=== PATIENT | male | born 1940 | race Caucasian/White ===

== ENCOUNTER → 2024-06-27 12:27 | Outpatient (REF) | payer MEDICARE, SELFPAY | LOC: RAD 12:27 | PROVIDERS: ATTENDING PHYSICIAN Specialist | DX: N13.30 Unspecified hydronephrosis (principal) | CPT/HCPCS: 74176 ==

== ENCOUNTER → 2024-09-10 09:37 | Outpatient (REF) | payer MEDICARE, SELFPAY | LOC: MRI 3T 09:37 | PROVIDERS: ATTENDING PHYSICIAN Psychiatry & Neurology Neurology; FAMILY PHYSICIAN Internal Medicine | DX: G62.9 Polyneuropathy, unspecified (principal) | CPT/HCPCS: 70551 ==

== ENCOUNTER 2025-01-08 19:35 | Inpatient (IN) | payer MEDICARE, OTHER, SELFPAY ==
[2025-01-08] VITALS (75 sets, daily range): BP systolic 64–112; BP diastolic 25–81; BMI 23.7; BMI 21.9
[2025-01-08] MEDS: NSS 1000 IV ×3 (15:50→22:59)
--- NOTE | 2025-01-08 15:53 | ED.GENMED ---
History of Present Illness
General
Chief Complaint: Catheter/Tube Problem
Source: patient and ambulance crew
Exam Limitations: none
Time Seen by Provider: 01/08/25 15:41
Nursing documentation reviewed up to this point in time: agreed with
History of Present Illness
History of Present Illness:
84 yo male presents emergency department complaining of bleeding during insertion of Cohen catheter at 4 AM. Is described as nathan red blood with clots. The catheter was removed, and he continues to have clots. He states his blood pressure
usually runs somewhat low. He did take his midodrine this morning.
Past History
Past History
ED Past Medical History: Cancer (non hodgkins lymphoma), Other (BPH, irritable bowel syndrome) and Other (kidney stones)
Social History
Tobacco: Non-smoker
Alcohol: None
Drug: None
Living: detention
Review of Systems
Review of Systems
Allergies reviewed?: Yes
All Other Systems: Not applicable
Constitutional: Reports no symptoms
EENT: Reports no symptoms
Respiratory: Reports no symptoms
Cardiac: Reports no symptoms
ABD/GI: Reports no symptoms
: Reports bleeding
Musculoskeletal: Reports no symptoms
Skin: Reports no symptoms
Neurological: Reports no symptoms
Endocrine: Reports no symptoms
Hematologic/Lymphatic: Reports no symptoms
Psychiatric: Reports no symptoms
Phy Exam
Physical Exam
Physical Exam:
Physical Exam
General: no apparent distress, not acutely ill
Neck: supple. no meningeal signs. normal posterior pharynx
Heart: s1/s2 regular rate and rhythm, no murmur. equal radial
pulses.
HEENT: Pupils equal round reactive to light, EOMI
Lungs: no acute respiratory distress. clear bilaterally
Abdomen: normal bowel sounds. not tender. no CVAT
: blood at urethral meatus
Neuro: alert and oriented. no focal neurological deficits cranial nerves II through XII intact
Skin: no rash
Psychiatric: well kept. interactive and cooperative
Extremities: no edema. no calf tenderness. negative homans. good distal pulses, contractures bilateral feet
Course
Orders/Labs/Results
Orders:
Orders
01/08/25 15:50
Lidocaine 2% [Lidocaine Uro-Jet 2%] 1 syringe .ROUTE .STK-MED ONE
Sterile Water [Sterile Water For Injection] 10 ml .ROUTE .STK-MED ONE
Sterile Water [Sterile Water For Injection] 20 ml .ROUTE .STK-MED
01/08/25 15:51
Cohen Placement- Treatment ONCE
Reason for insertion: Acute Retention
IV Insert/Care/Rem.- Treatment PRN
01/08/25 15:52
0.9% Sodium Chloride 1000 ml [Nss] 1,000 ml IV BOLUS
01/08/25 16:05
Complete Blood Count/With Diff Urgent
Comprehensive Metabolic Panel Urgent
Lactic Acid Q4H
Comment: CANCEL 2nd LACTIC ACID IF 1st LACTIC ACID IS LESS THAN 2
01/08/25 16:35
CT Abd/pel Without Iv Or Oral Urgent
Comment:
Reason For Exam: hematuria
01/08/25 16:36
Catheter- Indwelling As Directed
Reason for insertion: Urology Determination
Catheter-Hand Irrigation As Directed
Solution:: Sterile 0.9% NaCl
Amount: 100cc
Frequency: q 4hrs and prn
Reason for hand irrigation: hematuria and clots
Irrigate via:: Catheter directly
01/08/25 16:45
0.9% Sodium Chloride 500 ml [Nss] 1,000 ml IV Wide Open mls/hr
01/08/25 17:35
Cefepime HCl [Maxipime] 1,000 mg IV NOW STA
Midodrine [ProAmatine] 5 mg PO NOW STA
01/08/25 17:52
Sterile Water [Sterile Water For Injection] 20 ml .ROUTE .STK-MED
01/08/25 18:15
NORepinephrine 4 MG/250 ML [Levophed] 4 mg in 250 ml IV NOW
Initial dose in mcg/min, then titrate:: 4
Titrate to keep:: MAP > 65 mmHg
Titrate by mcg/min:: 1-2 mcg/min
Frequency of titrations (minutes):: 5
Maximum dose in ICU in mcg/min:: 30
Maximum dose in IMU in mcg/min:: 8
Maximum dose in IVU in mcg/min:: 4
Begin to taper infusion when:: Remained at goal for 4hrs
Taper by mcg/min:: 1-2 mcg/min
Frequency of taper (minutes) if patient maintains goal:: 30
Taper to off?: Yes
If infusion off & no longer maintaining goal:: Contact Provider
01/08/25 18:16
NORepinephrine 4 MG/250 ML [Levophed] 4 mg in 250 ml .ROUTE .STK-MED
01/08/25 18:24
Urinalysis Reflex To Culture Urgent
Date Specimen was Collected: 01/08/25
Time Specimen was Collected: 18:23
Urine Microscopic Reflex Cult Urgent
Urine Culture Urgent
TOM Source: U
Specimen Description:
Date Specimen was Collected: 01/08/25
Time Specimen was Collected: 18:23
01/08/25 18:30
Blood Culture Q30M
TOM Source: Blood/Venous
Specimen Description:
Blood Culture Q30M
TOM Source: Blood/Venous
Specimen Description:
01/08/25 18:43
Admit/Transfer Patient As Directed
Co-Sign Provider:
Level of Care: Inpatient admission
Assign to:: IMU- Intermediate Care
Physician / Group: [place]
Diagnosis: Septic Shock
Reason for Hospitalization: IV abx, blood pressure support
Expected length of stay greater than two midnights?: Yes
ELOS- Estimated Length of Stay in days: 3
I certify the patient meets the requirements for IP care: Yes
01/08/25 18:44
PRN Pain Medication Management As Directed
May give lesser potent ordered pain med per pt: Yes
preference::
Protocol:: Medication orders for pain may be administered in a
manner that supports deferring to patient preference
when the pt is:
- Requesting an ordered lesser potent pain medication.
Least to most potent pain medications are defined
as: acetaminophen < NSAID < tramadol < opioids
(morphine, oxycodone, hydromorphone).
- Requesting a lesser dose of the same medication IF
ORDERED.
- Requesting a less intrusive route of administration
if both routes are prescribed by the provider (PO <
IV).
01/08/25 18:47
Code Status As Directed
Resuscitation Status: Full Code
01/08/25 18:48
Acetaminophen [Tylenol] 1,000 mg .ROUTE .STK-MED ONE
Acetaminophen [Tylenol] 1,000 mg PO NOW STA
01/08/25 20:00
Lactic Acid Q4H
Comment: CANCEL 2nd LACTIC ACID IF 1st LACTIC ACID IS LESS THAN 2
Abnormal Lab Results
01/08/25 01/08/25
16:05 18:24
WBC 28.0 H 10^3/uL
(4.8-10.8)
RBC 3.50 L 10^6/uL
(4.70-6.10)
Hgb 10.1 L g/dL
(13.0-18.0)
Hct 30.8 L %
(39.0-52.0)
MCHC 32.8 L g/dL
(33.0-37.0)
Abs Immat Gran (auto) 0.4 H 10^3/uL
(0-0.05)
Absolute Neuts (auto) 26.9 H 10^3/uL
(1.4-6.5)
Absolute Lymphs (auto) 0.3 L 10^3/uL
(1.2-3.4)
Immature Gran % 1.2 H %
(0-0.5)
Neutrophils % 96.0 H %
(42.2-75.2)
Lymphocytes % 1.0 L %
(20.5-51.1)
Monocytes % 1.5 L %
(1.7-9.3)
BUN 25 H mg/dl
(9-20)
Creatinine 1.8 H mg/dL
(0.7-1.3)
Glucose 113 H mg/dl
(70-99)
Alkaline Phosphatase 178 H U/L
(38-126)
Ur Occult Blood Reflex 4+ A
(Negative)
Leukocyte Esterase Rfl 3+ A
(Negative)
Urine RBC >100 A /HPF
(0-2)
Urine WBC (Reflex) 11-15 A /HPF
(0-5)
Urine Bacteria (Reflex) Many A
(Negative)
Urine Albumin (Reflex) 2+ A
(Neg - Trace)
01/08/25 16:05
01/08/25 16:05
Vital Signs
Initial and Last Documented VS:
Initial Vital Signs
Temp Pulse Resp BP Pulse Ox
98.5 F 107 17 85/57 94
01/08/25 15:22 01/08/25 15:22 01/08/25 15:22 01/08/25 15:22 01/08/25 15:22
Last Documented Vital Signs
Temp Pulse Resp BP Pulse Ox
101.7 F H 97 12 111/49 94
01/08/25 18:00 01/08/25 19:30 01/08/25 19:30 01/08/25 19:30 01/08/25 19:30
MDM/Problems Addressed
Differential Diagnosis Includes:
Sepsis, UTI
MDM/Problems Addressed:
84-year-old male with UTI, hematuria, hypotension. Improved with Levophed drip. Cefepime given. Dr. Benson placed Cohen catheter.
Chronic conditions affecting care: Cancer (Lymphoma)
*Radiology
Radiology exam reviewed: radiology read reviewed (CT abdomen pelvis shows likely underlying cystitis, rectal stool bolus, trace bilateral pleural)
*Pulse Oximetry
Patient hypoxic: no
*Critical Care Note
Total Time (30-74mins, 75-104mins- exclusive of procedures): 30
comment:
Critical care statement: A total of 30 minutes of critical care time was provided for this patient. This includes management of unstable vital signs, evaluation of the patient at bedside, reviewing the patient's pertinent medical records, discussion
with consultants, review of old EKGs and review of pertinent medical records. This time with separate from time utilized to perform the aforementioned documented procedures
Patient Management
Social determinants of health affecting care: Living situation
Discussion with other providers: Hospitalist and Elevated Guard (Urology, Dr. Benson)
Escalation/DeEscalation of care consider admission/obs:
Admit indicated
ED Attending Note
-
Portions of this chart may have been created with voice recognition software.� Occasional wrong word or��sound alike� substitutions may have occurred due to the inherent limitations of voice recognition software.
Discharge Plan
Departure
Patient Disposition: Admit
Date of Disposition: 01/08/25
Time of Disposition: 17:37
Admit to: IMU
Presentation/result/management discussed w/ accepting MD/DO: Hospitalist
Patient with high blood pressure during this ER visit?: No
Condition: Fair
Discharge Problem:
Acute urinary retention, Hematuria, Acute hypotension
Interventions
Interventions:
*Risk Screen - Suicide Last Done: 01/08/25 15:41
*General Assessment Last Done: 01/08/25 15:22
*Neglect/Abuse Screening Last Done: 01/08/25 15:22
*ED COVID-19 Vaccine History Last Done: 01/08/25 15:43
XU-Awaong-Vamusmiylx Assessment Last Done: 01/08/25 17:47
ED-Male Genitourinary Assessment Last Done: 01/08/25 17:47
[2025-01-08 16:27] LABS: Lactic Acid 1.7 mmol/L (0.7-2.0)
[2025-01-08 16:33] LABS: Hematocrit 30.8 % (39.0-52.0); Hemoglobin 10.1 g/dL (13.0-18.0); Mean Corp Hgb Conc. 32.8 g/dL (33.0-37.0); Mean Corpuscular Hgb 28.9 pg (27.0-31.0); Platelet Count 312 10^3/uL (130-400); Red Cell Dist. Width 14.1 % (11.5-14.5)
--- NOTE | 2025-01-08 16:37 | CON.MD ---
Consultation - Medical
-
see dictated note
pt seen by me remotely
had hx of thickened bladder/had negative cysto several years ago
last CT showed again bladder thickening/hydro and left ureteral stones- had rec OR cysto/bx and ureteroscopy- pt declined
trent was placed several months ago- ? reason
today was changed with resultant clot obstruction
in ER trent could not be placed by staff
pt has elevated WBC and mild hypotension
22french coude cath placed- irrigated with 1 liter of saline- clots removed- irrigant cleared
plan
continue trent and hand irrigation- may need to address change clerk to 3 way- could require cysto
cover empirically with antibx- likely UTI- although suspect hematuria due to cath trauma
no blood thinners
check CT
will follow
[2025-01-08 16:42] LABS: % Basophils 0.2 % (0-2); % Eosinophils 0.1 % (0-6); % Immature Granulocytes 1.2 % (0-0.5); % Monocytes 1.5 % (1.7-9.3); Absolute Basophils 0.1 10^3/uL (0-0.2); Absolute Immature Granulocytes 0.4 10^3/uL (0-0.05); Absolute Lymphocytes 0.3 10^3/uL (1.2-3.4); Absolute Monocytes 0.4 10^3/uL (0.1-0.6); Absolute Neutrophils 26.9 10^3/uL (1.4-6.5); Nucleated Red Blood Cells % 0 % (-)
[2025-01-08 16:43] LABS: Normal RBC Morphology No
[2025-01-08 16:44] LABS: Hypochromasia 2+; Target Cells Moderate
[2025-01-08 16:45] LABS: Stomatocytes Occasional
[2025-01-08 16:47] LABS: ALT (SGPT) 17 U/L (0-50); AST (SGOT) 25 U/L (17-59); Albumin 3.6 g/dl (3.5-5.0); Alkaline Phosphatase 178 U/L (38-126); Blood Urea Nitrogen 25 mg/dl (9-20); Calcium 9.6 mg/dl (8.4-10.2); Carbon Dioxide 26 mmol/L (22-30); Chloride 100 mmol/L (98-107); Estimated Creatinine Clearance 36 ml/min; Glucose 113 mg/dl (70-99); Potassium 4.5 mmol/L (3.5-5.1); Sodium 135 mmol/L (135-145); Total Protein 6.3 g/dl (6.3-8.2); eGFR 37.12
[2025-01-08] MEDS: ProAmatine 5 MG PO (17:53)
[2025-01-08] MEDS: MAXIPIME 1000 MG IV (17:53)
[2025-01-08 18:30] LABS: Urine Albumin 2+ (Neg - Trace); Urine Bilirubin Negative (Negative); Urine Character Cloudy (Clear); Urine Color Yellow; Urine Glucose Negative (Negative); Urine Ketone Negative (Negative); Urine Leukocyte 3+ (Negative); Urine Nitrite Negative (Negative); Urine Occult Blood 4+ (Negative); Urine Urobilinogen Negative (Neg - 1+)
[2025-01-08] MEDS: LEVOPHED 250 IV (18:32)
[2025-01-08 18:44] LABS: Urine Squamous Cell 0-2 /LPF (Few)
[2025-01-08 18:45] LABS: Urine Red Blood Cell >100 /HPF (0-2)
[2025-01-08 18:46] LABS: Urine Bacteria Many (Negative)
[2025-01-08] MEDS: TYLENOL 1000 MG PO (18:49)
--- NOTE | 2025-01-08 18:59 | HPS.HSE ---
Addendum entered and electronically signed by Michelle Stovall PA-C 01/08/25 19:57:
Reviewed Abd/Pelvis CT scan which revealed large rectal stool bolus.
-Give milk and molasses enema now
-Start MiraLAX Daily
-Given his limited mobility will add Dulcolax suppository every other day
Original Note:
Family Physician
-
Family Physician: José Luis Solis MD
Chief Complaint
-
Hematuria
History of Present Illness
Patient is an 84 y/o male past medical history of peripheral neuropathy, spinal stenosis, chronic hypotension, Hodgkin lymphoma, and anxiety/depression who presents from [facility] with hematuria. Patient had his routine Cohen catheter changed
today and afterwards developed hematuria. Patient had persistent bleeding and clot and was sent to the emergency department for evaluation. Attempt was made to place a 3-way catheter for CBI but was unsuccessful. Urology was able to place Coude
catheter and hand irrigate a large amount of clots. While in the ED patient remained hypotensive despite IVFs and was started on Levophed. He also developed fever 101.7F.
Medical History
Past Medical History
Past Medical History: Reports Other
Additional Past Medical History:
Peripheral Neuropathy
Spinal Stenosis
Chronic Hypotension
GERD
Irritable Bowel Syndrome
Lactose Intolerance
BPH
Chronic Urinary Retention with Chronic Cohen
Hodgkin Lymphoma
Anxiety/Depression
Past Surgical History: Reports None
Social History
Tobacco: Non-smoker
Living: [facility]
Family History
Family History: Not pertinent
Allergies / Home Medications
Allergies reflects when Allergies were last updated in [facility].
Home Medications with original date entered in [facility]
Allergy/Medication List:
Allergies
Allergy/AdvReac Type Severity Reaction Status Date / Time
No Known Allergies Allergy Unverified 01/08/25 15:21
Home Medications
Saccharomyces boulardii 250 mg capsule 250 mg PO BID 01/08/25
acetaminophen 325 mg tablet 650 mg PO Q4HPRN PRN mild pain/temp>100 01/08/25
albuterol sulfate 90 mcg/actuation aerosol inhaler 2 puff inhalation R Q4HPRN PRN sob 01/08/25
aluminum-mag hydroxide-simethicone 225 mg-200 mg-25 mg/5 mL oral susp 30 ml PO Q8HPRN PRN heartburn 01/08/25
bismuth subsalicylate 262 mg/15 mL oral suspension 524 mg PO Q6HPRN PRN diarrhea/upset stomach 01/08/25
bupropion HCl 150 mg 24 hr tablet, extended release (Wellbutrin XL) 150 mg PO Q48H 01/08/25
diazepam 5 mg tablet 5 mg PO HS 01/08/25
gabapentin 300 mg capsule 300 mg PO HS 01/08/25
lactase 9,000 unit tablet (Lactaid Fast Act) 9,000 unit PO AC 01/08/25
loperamide 2 mg capsule (Imodium A-D) 2 mg PO Q8HPRN PRN diarrhea 01/08/25
midodrine 5 mg tablet 5 mg PO BID 01/08/25
pantoprazole 20 mg tablet,delayed release 20 mg PO DAILY 01/08/25
tamsulosin 0.4 mg capsule (Flomax) 0.4 mg PO BID 01/08/25
tramadol 25 mg tablet 25 mg PO Q8HPRN PRN moderate pain 01/08/25
Review of Systems
-
A 12 point ROS was completed and negative except as noted: Yes
Constitutional: Reports Fever
Respiratory: Denies Cough or Trouble Breathing
Cardiac: Denies Chest Pain or Palpitations
Abdomen/GI: Denies Abdominal Pain
: Reports See HPI
Physical Exam
Vital Signs
Vital Signs
Temp Pulse Resp BP Pulse Ox
101.7 F H 100 18 77/49 94
01/08/25 18:00 01/08/25 18:30 01/08/25 18:30 01/08/25 18:30 01/08/25 18:30
Physical Exam
General: Comfortable and Conversant
HEENT: Anicteric and Moist mucous membranes
Respiratory: Clear and Non Labored Respirations
Cardiac: S1/S2 and Regular Rhythm
GI: Tender (LLQ without or guarding) and Distended (Slightly)
Rectal: Hem Negative
Genito-urinary: Cohen and Other (Slightly blood tinged urine)
Musculoskeletal: No Clubbing, No Cyanosis and No Edema
Skin: Warm and Dry
Neuro: Awake, Alert, Oriented and Nonfocal/grossly intact
Psych: Calm
Laboratory Results
-
01/08/25 16:05
01/08/25 16:05
Laboratory Results
Lactic Acid 1.7 mmol/L (0.7-2.0) 01/08/25 16:05
Total Bilirubin 1.0 mg/dl (0.2-1.3) 01/08/25 16:05
AST 25 U/L (17-59) 01/08/25 16:05
ALT 17 U/L (0-50) 01/08/25 16:05
Alkaline Phosphatase 178 U/L (38-126) H 01/08/25 16:05
Data Reviewed
-
Lab Data: Labs Reviewed by me
Impression/Plan
-
Septic Shock most likely secondary to Catheter-Associated Urinary Tract Infection
-Continue Levophed
-Continue Cefepime
-Await urine and blood culture
-Await CT scan result
Elevated Creatinine, suspect Acute Kidney Injury
-Continue IVFs
-Recheck creatinine in AM
Peripheral Neuropathy
Spinal Stenosis
Functional Paraplegia
-Continue gabapentin
-Patient reports essentially bedbound
Chronic Hypotension
-Patient reports systolic blood pressure usually around 100
-Hold Midodrine while Levophed
Anxiety/Depression
-Continue Wellbutrin and Diazepam
BPH
-Continue Flomax
GERD
-Continue Protonix
DVT proph: SC Heparin
Code Status: Full Code
--- NOTE | 2025-01-08 19:46 | W.PN.UPDATE ---
Update Note
Progress Note Update
This is an addendum to the H&P written by Michelle Hernandez on 01/08/2025.� Patient seen and examined independently with PA.
84-year-old male past medical history of spinal stenosis, peripheral neuropathy, chronic urinary retention with chronic Cohen, BPH, Hodgkin's lymphoma, hypotension, GERD, IBS, anxiety/depression, presenting with hematuria with clots and urinary
retention.
Patient with fever 101.7.� Blood pressures 60s.
White blood cell count of 28.� Creatinine 1.8.
Urinalysis indicative of UTI.
Cohen catheter was attempted to be replaced with three-way catheter but could not be placed.� Coud� catheter placed with hand irrigation with 1 L.� Clots were removed.
Patient was septic shock secondary to catheter associated UTI.� Urine culture, blood cultures.� Cefepime.� CT abdomen pelvis pending.� Urology following.
--- NOTE | 2025-01-08 22:00 | PTCARENOTE ---
Received verbal report from [facility]. Pt arrived to unit via stretcher. Pt aaox3. NSR on monitor. 96% on RA. Levo gtt infusing at 5 mcg/min. Admission assessment as documented (see worklist). Pt now resting in bed with call phillip in reach.
[2025-01-08] MEDS: FLOMAX PO (22:59)
[2025-01-08] MEDS: FLORASTOR PO (22:59)
[2025-01-08] MEDS: NEURONTIN PO (22:59)
[2025-01-08] MEDS: HEPARIN 5000 UNITS SC (22:59)
--- NOTE | 2025-01-08 23:00 | PTCARENOTE ---
Pt ox3, drowsy and arouses to verbal stimuli, but quickly falls back asleep. Pt states he is too tired to take his medication. Pt Unable to safely take pills at this time.
[2025-01-08 23:26] LABS: Glucose - Point of Care 123 mg/dl (70-99)
[2025-01-09] VITALS (48 sets, daily range): BP systolic 90–125; BP diastolic 48–76; BMI 21.9
[2025-01-09] MEDS: FLOMAX PO (00:16)
[2025-01-09] MEDS: FLORASTOR PO (00:17)
[2025-01-09] MEDS: NEURONTIN PO (00:17)
[2025-01-09] MEDS: STERILE WATER FOR INJECTION 10 ML IV ×3 (02:04→17:24)
[2025-01-09] MEDS: MAXIPIME 1000 MG IV ×3 (02:04→17:24)
[2025-01-09 03:50] LABS: Hematocrit 28.8 % (39.0-52.0); Hemoglobin 9.9 g/dL (13.0-18.0); Mean Corp Hgb Conc. 34.4 g/dL (33.0-37.0); Mean Corpuscular Hgb 29.5 pg (27.0-31.0); Mean Corpuscular Volume 85.7 fL (80.0-94.0); Platelet Count 228 10^3/uL (130-400); Red Blood Cell Count 3.36 10^6/uL (4.70-6.10); White Blood Cell Count 34.2 10^3/uL (4.8-10.8)
[2025-01-09 03:56] LABS: Blood Urea Nitrogen 30 mg/dl (9-20); Calcium 8.7 mg/dl (8.4-10.2); Carbon Dioxide 19 mmol/L (22-30); Chloride 107 mmol/L (98-107); Estimated Creatinine Clearance 36 ml/min; Glucose 108 mg/dl (70-99); Potassium 4.7 mmol/L (3.5-5.1); Sodium 138 mmol/L (135-145); eGFR 39.75
[2025-01-09 04:28] LABS: TSH Reflex To Free T4 0.58 uIU/ml (0.47-4.68)
--- NOTE | 2025-01-09 07:25 | W.PN.URO.CBU ---
Today's Communication / Plan
-
continue trent and medical support
Assessment / Plan
-
neurogenic bladder
CRI
traumatic cath exchange with hematuria
Suspected UTI/urosepsis
off pressors/continues hydration
urine clearing- continue trent and prn flushes
awaiting ucx
Diagnosis
-
Date of Service: January 09, 2025
-
Patient Diagnosis:
neurogenic bladder
CRI
Traumatic cath exchange with hematuria
suspected UTI
Subjective
-
pt without complaint
urine clearing
now off pressors
cr stable at 1.7
CT scan- no hydro or stones- chronic bladder thickening
Objective
-
Vital Signs
Temp Pulse Resp BP Pulse Ox
97 F 82 14 98/54 97
01/09/25 03:54 01/09/25 06:30 01/09/25 06:30 01/09/25 06:30 01/09/25 06:30
Intake and Output
01/08/25 01/09/25 01/10/25
06:59 06:59 06:59
Intake Total 1280 / 1280
Output Total 450 / 450
Balance 830 / 830
Intake:
Oral fluids 480 / 480
IV fluids (Total) 800 / 800
Output:
Urine, Voided 350 / 350
True urine output from hand 100 / 100
irrigation
Other:
Number of unmeasured liquid
stools
Rectum 1
Laboratory Results
01/09/25 03:18
01/09/25 03:18
Physical Exam
-
General -no acute distress
Abdomen - soft, non-tender
Genitalia - trent in place
[2025-01-09] MEDS: LACTAID 1 CAPSULE PO ×3 (07:59→17:23)
[2025-01-09] MEDS: MIRALAX 17 GRAMS PO (08:09)
[2025-01-09] MEDS: HEPARIN 5000 UNITS SC ×2 (08:09→17:24)
[2025-01-09] MEDS: PROTONIX 20 MG PO (08:10)
[2025-01-09] MEDS: FLORASTOR 250 MG PO ×2 (08:10→19:51)
[2025-01-09] MEDS: FLOMAX 0.4 MG PO ×2 (08:10→19:52)
[2025-01-09] MEDS: WELLBUTRIN XL (24 hour extended release) 150 MG PO (08:10)
[2025-01-09] MEDS: NSS 1000 IV ×2 (08:10→18:01)
--- NOTE | 2025-01-09 08:59 | CM ---
Patient from [facility] with Dx septic shock, Suspected UTI/urosepsis. Room air. Clear liquids/IVF. Receiving Levophed gtt, IV Abx. Cohen- seen by urology for traumatic cath exchange with hematuria.
Spoke with [facility], [facility];
the patient resides there in LTC on an [place] bed hold.
He came to them from subsidized housing and has no family, however has contact with a friend.
He was A/O x3, w/c bound and not receiving PT currently.
The patient prefers to be in bed watching TV most of the day.
The ph for report [phone], fax [phone].
Plan return to [facility] when medically ready.
--- NOTE | 2025-01-09 11:35 | PTCARENOTE ---
Assumed care of patient this morning. He is very curious about all buttons tile conduit layer phillip and remote to move the bed. Pt is forgetful, therefore asking multiple times to explain which each one means. He was upset that his diet was clear liquids this
morning, was at the bedside and upgraded pt's diet. Pt's Cohen is draining yellow urine. He was incontinent of moderate amount of stool. BP soft but stable since off of Levo. Assessment, care and VS as charted.
--- NOTE | 2025-01-09 13:00 | PTCARENOTE ---
Patient Cohen output of only 200mls by 1300. Hand irrigation of Cohen performed, no clots noted. Pt tolerated.
--- NOTE | 2025-01-09 15:43 | W.PN.HOSP.TC ---
Today's Communication/Plan
-
Assessment / Plan
Assessment / Plan
General: No Apparent Distress, Comfortable and Conversant
HEENT: NormoCephalic, Moist mucous membranes, Atraumatic
Respiratory: Clear and Non Labored Respirations
Cardiac: S1/S2 and Regular Rhythm; No Rub or Gallop
GI: Soft, Non Tender, Non Distended and Normal Bowel Sounds
Musculoskeletal: No Edema, spastic deformity bilateral lower extremities
: Cohen in place draining clear yellow urine
Neuro: Awake, Alert, AO x 3 and Nonfocal/grossly intact
Psych: Calm and Intact Judgment/Insight
Mr. Alvarado is an 84-year-old male with a medical history of spinal stenosis (bedbound, spastic lower extremity deformity bilaterally), peripheral neuropathy, chronic hypotension, Hodgkin's lymphoma, and anxiety/depression who presented from his
[facility] with hematuria. His Cohen catheter was exchanged and subsequently he developed hematuria with clots. He was sent to the emergency department for evaluation. Three-way Cohen catheter for CBI was unable to be placed. However, urology
was able to place a coud� catheter and irrigated a large amount of clots, after which his Cohen was draining clear yellow urine. He was also noted to have a fever in the ED and CT of the abdomen pelvis showed a large rectal stool burden with likely
developing stercoral colitis. He developed hypotension requiring initiation of vasopressors. He was admitted for further evaluation and management of hematuria, septic shock secondary to UTI, and stercoral colitis.
Hematuria:
-Suspect secondary to traumatic Cohen exchange
-Cohen now draining clear yellow urine
-Hemoglobin stable, will monitor
-Monitor urine output and flush Cohen as needed
Septic shock secondary to UTI:
-Continue cefepime
-Has been afebrile since initial fever of 101.7 �F in the ED
-Follow-up urine culture and narrow antibiotics as able
-Shock resolved, vasopressors have been discontinued, will restart home midodrine for chronic hypotension
Stercoral colitis:
-Large rectal stool burden noted on CT imaging
-Successful enema overnight with large stool output
-Continue scheduled bowel regimen as patient
-Suspect patient has slow transit due to spinal stenosis affecting his lower extremities, bowel, and bladder
Hodgkin's lymphoma:
-Stable, expectedly elevated WBC
-Will need outpatient follow-up
Anxiety and depression:
-Continue home scheduled bupropion with as needed Valium
Peripheral neuropathy:
-Chronic, suspect due to spinal stenosis
-Continue home gabapentin
CODE STATUS: Full code
Anticipated Discharge: 24 - 48 hours
Subjective/Interval History
-
Date of Service: January 09, 2025
Patient was seen and examined at bedside this morning. No more blood per Cohen. Feeling hungry and eager for regular diet. He received an enema overnight with a large amount of stool output.
Objective Data
-
Labs:
Laboratory Results
01/09/25
03:18
WBC 34.2 H
Hgb 9.9 L
Hct 28.8 L
Plt Count 228 D
Sodium 138
Potassium 4.7
Chloride 107
Carbon Dioxide 19 L
BUN 30 H
Creatinine 1.7 H
Glucose 108 H
Calcium 8.7
Vital Signs:
Vital Signs
Temp Pulse Resp BP Pulse Ox
97.7 F 91 13 104/55 98
01/09/25 11:05 01/09/25 11:30 01/09/25 11:30 01/09/25 11:30 01/09/25 11:30
I&O
01/08/25 01/09/25 01/10/25
06:59 06:59 06:59
Intake Total 1280 / 1280
Output Total 450 / 450
Balance 830 / 830
Review of Systems
-
History Source: Patient
All other systems: Reviewed and negative
Physical Exam
-
General: No Apparent Distress
[2025-01-09] MEDS: DULCOLAX 10 MG RECTAL (19:51)
[2025-01-09] MEDS: ULTRAM 25 MG PO (19:51)
[2025-01-09] MEDS: ProAmatine 5 MG PO (19:52)
[2025-01-09] MEDS: NEURONTIN 300 MG PO (21:19)
[2025-01-09] MEDS: VALIUM 5 MG PO (21:19)
[2025-01-10] VITALS (15 sets, daily range): BP systolic 91–144; BP diastolic 59–87; BMI 21.6
[2025-01-10] MEDS: STERILE WATER FOR INJECTION 10 ML IV ×3 (01:24→17:02)
[2025-01-10] MEDS: HEPARIN 5000 UNITS SC ×4 (01:25→23:40)
[2025-01-10] MEDS: MAXIPIME 1000 MG IV ×3 (01:25→17:02)
[2025-01-10] MEDS: TYLENOL 650 MG PO ×3 (01:36→20:10)
--- NOTE | 2025-01-10 03:15 | PTCARENOTE ---
Assumed care of pt from john RN. Pt aaox3. NSR, hr 80s. Pt is 95% on RA. Pt given a suppository and had multiple large BMs overnight. Hygiene completed multiple times overnight (see worklist). Pt resting in bed with call phillip in reach.
[2025-01-10] MEDS: NSS 1000 IV ×2 (04:07→16:56)
[2025-01-10] MEDS: ULTRAM 25 MG PO ×3 (04:08→22:43)
[2025-01-10 04:52] LABS: % Basophils 0.3 % (0-2); % Eosinophils 0.1 % (0-6); % Immature Granulocytes 1.1 % (0-0.5); % Lymphocytes 5.2 % (20.5-51.1); % Monocytes 3.4 % (1.7-9.3); % Neutrophils 89.9 % (42.2-75.2); Absolute Basophils 0.1 10^3/uL (0-0.2); Absolute Immature Granulocytes 0.2 10^3/uL (0-0.05); Absolute Lymphocytes 1.1 10^3/uL (1.2-3.4); Absolute Monocytes 0.7 10^3/uL (0.1-0.6); Absolute Neutrophils 19.1 10^3/uL (1.4-6.5); Hematocrit 25.7 % (39.0-52.0); Hemoglobin 8.5 g/dL (13.0-18.0); Mean Corp Hgb Conc. 33.1 g/dL (33.0-37.0); Mean Corpuscular Hgb 28.4 pg (27.0-31.0); Mean Platelet Volume 9.9 fL (7.4-10.4); Nucleated Red Blood Cells % 0 % (-); Platelet Count 190 10^3/uL (130-400); Red Blood Cell Count 2.99 10^6/uL (4.70-6.10); Red Cell Dist. Width 14.1 % (11.5-14.5); White Blood Cell Count 21.3 10^3/uL (4.8-10.8)
[2025-01-10 05:27] LABS: Blood Urea Nitrogen 30 mg/dl (9-20); Carbon Dioxide 19 mmol/L (22-30); Chloride 110 mmol/L (98-107); Estimated Creatinine Clearance 50 ml/min; Glucose 93 mg/dl (70-99); Potassium 4.1 mmol/L (3.5-5.1); Sodium 136 mmol/L (135-145); eGFR > 60.00
[2025-01-10] MEDS: MIRALAX 17 GRAMS PO (08:31)
[2025-01-10] MEDS: LACTAID 1 CAPSULE PO ×2 (08:31→15:15)
[2025-01-10] MEDS: PROTONIX 20 MG PO (08:31)
[2025-01-10] MEDS: FLOMAX 0.4 MG PO ×2 (08:31→20:11)
[2025-01-10] MEDS: FLORASTOR 250 MG PO ×2 (08:31→20:09)
[2025-01-10] MEDS: ProAmatine 5 MG PO ×2 (08:32→20:11)
--- NOTE | 2025-01-10 09:43 | PHA.VAN.IN ---
Assessment
- Assessment
Renal Function: Unknown baseline (SCR trending down 1.8 --> 1.7 --> 1.2)
Concomitant Antimicrobials: cefepime
Plan
- Plan
Initial / Loading Dose: 2000mg - administration pending
Maintenance Regimen: dosing by level
Monitoring: random 01/11 600
Pharmacokinetics Vancomycin I
- -
Patient Age: 84
Patient Sex: Male
Vancomycin Day #: 1
Indication: Bacteremia
Requesting Provider: Dr. Ornelas
Pertinent Antimicrobial Allergies:
NKDA
Height / Weight:
Height 6 ft 1 in
Actual Weight 74.14 kg
Pertinent Past Medical History: Spinal stenosis (bedbound), Hodgkin's lymphoma
- Vital Signs / Lab Results
Temp Pulse Resp BP Pulse Ox
98.6 F 93 9 128/71 95
01/10/25 07:36 01/10/25 08:32 01/10/25 07:00 01/10/25 08:32 01/10/25 07:00
Lab Results - Hematology
01/08/25 01/09/25 01/10/25
16:05 03:18 04:24
WBC 28.0 H 34.2 H 21.3 H
Lab Results - Chemistry
01/08/25 01/09/25 01/10/25
16:05 03:18 04:24
BUN 25 H 30 H 30 H
Creatinine 1.8 H 1.7 H 1.2
Estimated Creat Clear 36 36 50
Albumin 3.6
01/08/25 01/08/25
16:05 20:00
Lactic Acid 1.7 Cancelled
Lab Results - Urine
01/08/25
18:24
Urine Nitrite (Reflex) Negative
Leukocyte Esterase Rfl 3+ A
Urine WBC (Reflex) 11-15 A
Ur Squamous Epith Cells 0-2
Urine Bacteria (Reflex) Many A
Microbiology Results
01/08/25 18:24 Urine Culture - Preliminary
Urine
01/08/25 21:55 MRSA Screen - Final
Nose Staph aureus MRSA
01/08/25 18:30 Blood Culture - Preliminary
Blood/Venous Positive culture in progress
Gram Stain - Preliminary
01/08/25 18:30 Blood Culture - Preliminary
Blood/Venous No Growth in 24 hours- Final report to follow
--- NOTE | 2025-01-10 10:03 | PTCARENOTE ---
Assumed care of patient this morning. He does c/o of LE pain, medicated with Tylenol per MAR. Cohen maintained, still has slight bleeding from tip of penis. Patient has no other complaints but would like to know anticipated discharge. Assessment,
care and VS as charted.
[2025-01-10] MEDS: VANCOCIN 540 MG IV (10:35)
--- NOTE | 2025-01-10 11:45 | W.PN.URO.CBU ---
Today's Communication / Plan
-
outpt f/u
Assessment / Plan
-
neurogenic bladder
CRI
traumatic cath exchange with hematuria
Suspected UTI/urosepsis
urine clear- trent in place
awaiting cx results
pt already has fu with dr cotto in office in 2 weeks- will follow peripherally at this point- call with questions
Diagnosis
-
Date of Service: January 10, 2025
-
Patient Diagnosis:
neurogenic bladder
CRI
Traumatic cath exchange with hematuria
suspected UTI
Subjective
-
pt looks better
H stable
no fevers
wbc and cr returning to normal
ucx pending- 1 blood cx + for staph
Objective
-
Vital Signs
Temp Pulse Resp BP Pulse Ox
98.6 F 91 13 128/71 97
01/10/25 07:36 01/10/25 09:00 01/10/25 09:00 01/10/25 08:32 01/10/25 09:50
Intake and Output
01/09/25 01/10/25 01/11/25
06:59 06:59 06:59
Intake Total 1280 / 1280 3480 / 3480
Output Total 450 / 450 925 / 925 400 / 400
Balance 830 / 830 2555 / 2555 -400 / -400
Intake:
Oral fluids 480 / 480 1080 / 1080
IV fluids (Total) 800 / 800 2400 / 2400
Output:
Urine, Trent 350 / 350 400 / 400
Urine, Voided 350 / 350 575 / 575
True urine output from hand 100 / 100 0 / 0
irrigation
Other:
Number of unmeasured liquid
stools
Rectum 1 1
Laboratory Results
01/10/25 04:24
01/10/25 04:24
Physical Exam
-
General -no acute distress
Genitalia - trent in place- urine clear
--- NOTE | 2025-01-10 12:11 | CM ---
Reviewed the chart notes. Patient is a [facility] resident of [facility]. CM continues to be available to patient/family and is monitoring medical plan for needs at discharge.
Plan: Discharge back to [facility] when medically stable. No precert required.
[2025-01-10] MEDS: LACTAID PO ×2 (12:53)
--- NOTE | 2025-01-10 16:45 | CON.ID ---
Consultation
-
Date/Time Consultation Requested: 01/10/25 13:33
Date/Time Consultation Performed: 01/10/25 17:05
Requesting Provider: Dr Medina
Performing Provider: Dr Santillan
Reason for Consultation: staph bacteremia
Chief Complaint / Past History
Chief Complaint
hematuria
History of Present Illness
Mr Alvarado is an 84 year old male with history of Hodgkin lymphoma (never received treatment), peripheral neuropathy with ambulatory dysfunction who presented here 01/08 after developing hematuria after a routine trent replacement. He has peristent
bleeding and cltos and was sent to the ER where urology placed a coude catheter and hand irrigated a large amount of clots. Reports no wounds; I did check his heels and no wounds were present. No new back pain or changes in his vision. No hardwear
Since arrival here he was found to be febrile to 101.7, bp overall stable, wbc on arrival 28, hgb 10, plt 312, L shift noted, na 136, cr initially 1.8 today 1.2 unknown baseline, UA with gross hematuria and minimal pyuria, urine culture in progress,
blood cultures 1 of 2 sets with s aureus, nares with mrsa, a single repeat blood culture was done prior to vancomycin being started then ID was consulted and ordered the second set.
Past History
Additional Past Medical History:
Peripheral Neuropathy
Spinal Stenosis
Chronic Hypotension
GERD
Irritable Bowel Syndrome
Lactose Intolerance
BPH
Chronic Urinary Retention with Chronic Trent
Hodgkin Lymphoma
Anxiety/Depression
Past Surgical History: None
Allergy History:
No Known Allergies Allergy (Unverified 01/08/25 15:21)
Medications Reviewed: Yes
Social History
Tobacco: Non-Smoker
Alcohol: None
Living: Residential
Family History
Family History: Not Pertinent
Review of Systems
Review of Systems
General: Fever
All systems: All other systems were reviewed and were negative
Vital Signs
Temp Pulse Resp BP Pulse Ox
98.5 F 86 9 144/76 97
01/10/25 15:00 01/10/25 16:00 01/10/25 16:00 01/10/25 16:00 01/10/25 16:00
Physical Exam
Physical Exam
Constitutional: No Acute Distress
Cardiovascular: Regular Rate and S1/S2; Negative Murmur or Rub
Pulmonary: Clear and Symmetric; Negative Wheezes, Rales or Rhonchi
Gastrointestinal: Soft, Non Tender, Non Distended and Normal Bowel Sounds
Skin: Warm and Dry; Negative Rash or Jaundice
Wound: None (bilateral heels intact)
Lines: Other (no port)
Lab / Diagnostic Study Results
01/10/25 04:24
01/10/25 04:24
Abs Immat Gran (auto) 0.2 10^3/uL (0-0.05) H 01/10/25 04:24
Absolute Neuts (auto) 19.1 10^3/uL (1.4-6.5) H 01/10/25 04:24
Absolute Lymphs (auto) 1.1 10^3/uL (1.2-3.4) L 01/10/25 04:24
Absolute Monos (auto) 0.7 10^3/uL (0.1-0.6) H 01/10/25 04:24
Absolute Basos (auto) 0.1 10^3/uL (0-0.2) 01/10/25 04:24
Immature Gran % 1.1 % (0-0.5) H 01/10/25 04:24
Neutrophils % 89.9 % (42.2-75.2) H 01/10/25 04:24
Lymphocytes % 5.2 % (20.5-51.1) L 01/10/25 04:24
Monocytes % 3.4 % (1.7-9.3) 01/10/25 04:24
Eosinophils % 0.1 % (0-6) 01/10/25 04:24
Basophils % 0.3 % (0-2) 01/10/25 04:24
Lactic Acid Cancelled 01/08/25 20:00
Ur Squamous Epith Cells 0-2 /LPF (Few) 01/08/25 18:24
Microbiology Results
Micro:
01/10/25 15:12 Blood Culture - Pending
Blood/Venous
01/08/25 18:30 Blood Culture - Preliminary
Blood/Venous Staphylococcus aureus
Gram Stain - Preliminary
01/10/25 09:11 Blood Culture - Pending
Blood/Venous
01/08/25 18:24 Urine Culture - Preliminary
Urine
01/08/25 21:55 MRSA Screen - Final
Nose Staph aureus MRSA
01/08/25 18:30 Blood Culture - Preliminary
Blood/Venous No Growth in 24 hours- Final report to follow
Assessment / Plan
S aureus Bacteremia
chronic hypotension on midodrine
BLAYNE vs CKD
- 1 of 2 sets with s aureus
- repeat two sets of blood cultures today
- TTE done - report pending
- nares colonized with MRSA
- trend renal function
- agree with vancomycin
- will require at least two week of IV antibiotics
- PICC placement when two sets of blood cultures are negative at 48 hours
--- NOTE | 2025-01-10 16:49 | W.PN.HOSP.TC ---
Today's Communication/Plan
-
Assessment / Plan
Assessment / Plan
General: No Apparent Distress, Comfortable and Conversant
HEENT: NormoCephalic, Moist mucous membranes, Atraumatic
Respiratory: Clear and Non Labored Respirations
Cardiac: S1/S2 and Regular Rhythm; No Rub or Gallop
GI: Soft, Non Tender, Non Distended and Normal Bowel Sounds
Musculoskeletal: No Edema, spastic deformity bilateral lower extremities
: Cohen in place draining clear yellow urine
Neuro: Awake, Alert, AO x 3, bilateral lower extremity spasticity
Psych: Calm and Intact Judgment/Insight
Mr. Alvarado is an 84-year-old male with a medical history of spinal stenosis (bedbound, spastic lower extremity deformity bilaterally), peripheral neuropathy, chronic hypotension, Hodgkin's lymphoma, and anxiety/depression who [facility] with hematuria. His Cohen catheter was exchanged and subsequently he developed hematuria with clots. He was sent to the emergency department for evaluation. Three-way Cohen catheter for CBI was unable to be placed. However, urology
was able to place a coud� catheter and irrigated a large amount of clots, after which his Cohen was draining clear yellow urine. He was also noted to have a fever in the ED and CT of the abdomen pelvis showed a large rectal stool burden with likely
developing stercoral colitis. He developed hypotension requiring initiation of vasopressors. He was admitted for further evaluation and management of hematuria, septic shock secondary to UTI, and stercoral colitis.
Hematuria:
-Suspect secondary to traumatic Cohen exchange
-Cohen now draining clear yellow urine
-Hemoglobin stable, will monitor
-Monitor urine output and flush Cohen as needed
-Outpatient urology follow-up
Septic shock:
-Secondary to UTI, however now blood cultures are positive for Staph aureus
-Continue cefepime, added vancomycin
-Has been afebrile since initial fever of 101.7 �F in the ED, leukocytosis improving although still elevated as expected in the setting of known history of Hodgkin's lymphoma
-Follow-up final cultures and narrow antibiotics as able
-Shock resolved, vasopressors have been discontinued, will restart home midodrine for chronic hypotension
Staph aureus bacteremia:
-Blood cultures growing Staph aureus, vancomycin added
-Repeat blood cultures pending
-Will check echocardiogram
-Further recommendations per infectious disease team
Stercoral colitis:
-Large rectal stool burden noted on CT imaging
-Successful enema with large stool output
-Continue scheduled bowel regimen as patient
-Suspect patient has slow transit due to spinal stenosis affecting his lower extremities, bowel, and bladder
Hodgkin's lymphoma:
-Stable, expectedly elevated WBC
-Will need outpatient follow-up
Anxiety and depression:
-Continue home scheduled bupropion which pharmacy has confirmed is prescribed as 150 mg every 48 hours
-Patient reports that he is supposed to be taking Zoloft however pharmacy has confirmed this is not been prescribed recently even at his nursing facility
-Valium at night
Peripheral neuropathy:
-Chronic, suspect due to spinal stenosis
-Continue home gabapentin
CODE STATUS: Full code
Anticipated Discharge: 24 - 48 hours
Subjective/Interval History
-
Date of Service: January 10, 2025
Patient was seen and examined at bedside this morning. No complaints. His blood cultures did result positive for Staph aureus. Vancomycin has been added to his antibiotic regimen.
Objective Data
-
Labs:
Laboratory Results
01/10/25
04:24
WBC 21.3 H
Hgb 8.5 L
Hct 25.7 L
Plt Count 190
Sodium 136
Potassium 4.1
Chloride 110 H
Carbon Dioxide 19 L
BUN 30 H
Creatinine 1.2
Glucose 93
Calcium 8.0 L
Vital Signs:
Vital Signs
Temp Pulse Resp BP Pulse Ox
98.5 F 86 9 144/76 97
01/10/25 15:00 01/10/25 16:00 01/10/25 16:00 01/10/25 16:00 01/10/25 16:00
I&O
01/09/25 01/10/25 01/11/25
06:59 06:59 06:59
Intake Total 1280 / 1280 3480 / 3480
Output Total 450 / 450 925 / 925 400 / 400
Balance 830 / 830 2555 / 2555 -400 / -400
Review of Systems
-
History Source: Patient
All other systems: Reviewed and negative
Musculoskeletal: Reports Muscle Stiffness (Bilateral lower extremity and low back chronic pain)
Physical Exam
-
General: No Apparent Distress
--- NOTE | 2025-01-10 20:49 | PTCARENOTE ---
Patient oriented, but forgetful. C/o chronic severe back pain associated with LE pain and neuropathy. Tylenol given per MAR as tramadol is not due yet. Pt with moderate, dark, loose BM, hygiene care performed. Trent catheter with bloody drainage
around insertion site, trent care performed. Q2T schedule in place to prevent skin breakdown. Call phillip within reach.
[2025-01-10] MEDS: VALIUM 5 MG PO (21:21)
[2025-01-10] MEDS: NEURONTIN 300 MG PO (21:21)
[2025-01-11] VITALS (13 sets, daily range): BP systolic 89–150; BP diastolic 55–96; BMI 22.2
[2025-01-11] MEDS: NSS 1000 IV (02:03)
[2025-01-11] MEDS: MAXIPIME 1000 MG IV ×3 (02:49→17:55)
[2025-01-11] MEDS: STERILE WATER FOR INJECTION 10 ML IV ×3 (02:49→17:55)
[2025-01-11] MEDS: TYLENOL 650 MG PO ×2 (03:23→13:58)
[2025-01-11 03:29] LABS: % Basophils 0.4 % (0-2); % Eosinophils 0.7 % (0-6); % Lymphocytes 9.5 % (20.5-51.1); % Monocytes 5.2 % (1.7-9.3); % Neutrophils 83.2 % (42.2-75.2); Absolute Basophils 0.1 10^3/uL (0-0.2); Absolute Eosinophils 0.1 10^3/uL (0-0.7); Absolute Immature Granulocytes 0.1 10^3/uL (0-0.05); Absolute Lymphocytes 1.3 10^3/uL (1.2-3.4); Absolute Monocytes 0.7 10^3/uL (0.1-0.6); Absolute Neutrophils 11.5 10^3/uL (1.4-6.5); Hematocrit 27.8 % (39.0-52.0); Hemoglobin 9.2 g/dL (13.0-18.0); Mean Corp Hgb Conc. 33.1 g/dL (33.0-37.0); Mean Corpuscular Hgb 28.6 pg (27.0-31.0); Mean Corpuscular Volume 86.3 fL (80.0-94.0); Mean Platelet Volume 9.3 fL (7.4-10.4); Nucleated Red Blood Cells % 0 % (-); Platelet Count 176 10^3/uL (130-400); Red Blood Cell Count 3.22 10^6/uL (4.70-6.10); Red Cell Dist. Width 14.1 % (11.5-14.5); White Blood Cell Count 13.8 10^3/uL (4.8-10.8)
[2025-01-11 04:35] LABS: Blood Urea Nitrogen 20 mg/dl (9-20); Calcium 8.4 mg/dl (8.4-10.2); Carbon Dioxide 18 mmol/L (22-30); Chloride 112 mmol/L (98-107); Estimated Creatinine Clearance 77 ml/min; Glucose 94 mg/dl (70-99); Potassium 4.4 mmol/L (3.5-5.1); Sodium 139 mmol/L (135-145); eGFR > 60.00
[2025-01-11] MEDS: MIRALAX PO (08:45)
[2025-01-11] MEDS: ProAmatine 5 MG PO ×2 (08:46→19:20)
[2025-01-11] MEDS: PROTONIX 20 MG PO (08:46)
[2025-01-11] MEDS: LACTAID 1 CAPSULE PO ×2 (08:46→16:27)
[2025-01-11] MEDS: WELLBUTRIN XL (24 hour extended release) 150 MG PO (08:46)
[2025-01-11] MEDS: FLORASTOR 250 MG PO ×2 (08:47→19:20)
[2025-01-11] MEDS: HEPARIN 5000 UNITS SC ×2 (08:47→16:27)
[2025-01-11] MEDS: FLOMAX 0.4 MG PO ×2 (08:47→19:19)
[2025-01-11] MEDS: ULTRAM 25 MG PO ×2 (09:16→19:25)
--- NOTE | 2025-01-11 09:47 | PHA.VAN.FU ---
Vancomycin Assessment / Plan
- Assessment
Renal Function: SCR Decreasing
WBC's are: Trending Down
In the past 24 hrs, patient has been: Afebrile
Concomitant Antimicrobials: cefepime
- Assessment - Therapeutic Drug Monitoring
Random Level: level was not drawn on 01/11
- Dosing Plan
Adjust Regimen to: vancomycin 750 mg q12h
New Regimen Predicts: AUC (425), Peak (25.1), Trough (11.8)
- Monitoring Plan
Random Level: 01/12 @0530
- Follow Up
Pharmacy will continue to follow.
Vancomycin Follow UP
- -
Patient Age: 84
Patient Sex: Male
Vancomycin Day #: 2
Indication: Bacteremia
Requesting Provider: Dr. Ornelas
Pertinent Antimicrobial Allergies:
NKDA
Height / Weight:
Height 6 ft 1 in
Actual Weight 76.3 kg
Pertinent Past Medical History: Spinal stenosis (bedbound), Hodgkin's lymphoma
- Vital Signs / Lab Results
Temp Pulse Resp BP Pulse Ox
97.7 F 82 12 129/96 95
01/11/25 07:05 01/11/25 09:00 01/11/25 09:00 01/11/25 08:00 01/11/25 09:09
Lab Results - Hematology
01/08/25 01/09/25 01/10/25
16:05 03:18 04:24
WBC 28.0 H 34.2 H 21.3 H
01/11/25
03:20
WBC 13.8 H
Lab Results - Chemistry
01/08/25 01/09/25 01/10/25
16:05 03:18 04:24
BUN 25 H 30 H 30 H
Creatinine 1.8 H 1.7 H 1.2
Estimated Creat Clear 36 36 50
Albumin 3.6
01/11/25
03:20
BUN 20
Creatinine 0.8
Estimated Creat Clear 77
Albumin
01/08/25 01/08/25
16:05 20:00
Lactic Acid 1.7 Cancelled
Lab Results - Urine
01/08/25
18:24
Urine Nitrite (Reflex) Negative
Leukocyte Esterase Rfl 3+ A
Ur Squamous Epith Cells 0-2
Microbiology Results
01/08/25 18:24 Urine Culture - Preliminary
Urine Escherichia coli
Gram negative bacilli
01/10/25 09:11 Blood Culture - Preliminary
Blood/Venous No Growth in 24 hours- Final report to follow
01/08/25 18:30 Blood Culture - Preliminary
Blood/Venous Staphylococcus aureus
Gram Stain - Preliminary
01/08/25 18:30 Blood Culture - Preliminary
Blood/Venous No Growth in 48 hours- Final report to follow
01/08/25 21:55 MRSA Screen - Final
Nose Staph aureus MRSA
--- NOTE | 2025-01-11 09:58 | W.PN.ID1 ---
Addendum entered and electronically signed by Pati Santillan MD 01/11/25 17:24:
also possible UTI
continue cefepime pending final ID and sensi
Original Note:
Date of Service
Date of Service: January 11, 2025
Today's Communication
- agree with vancomycin - dose adjustments ongoing with improving renal function
- will require at least two week of IV antibiotics
- PICC placement when two sets of blood cultures are negative at 48 hours
Assessment / Plan
S aureus Bacteremia
chronic hypotension on midodrine
BLAYNE resolved
- 1 of 2 sets with s aureus
- repeat two sets of blood cultures today
- TTE done - no vegetation seen
- nares colonized with MRSA
- agree with vancomycin - dose adjustments ongoing with improving renal function
- will require at least two week of IV antibiotics
- PICC placement when two sets of blood cultures are negative at 48 hours
Chief Complaint
-: Bacteremia (S aurues)
Subjective / Review of Systems
afebrile
bp stable
back pain unchanged
no new complaints
Vital Signs / Physical Exam
Vital Signs
Vital Signs
Temp Pulse Resp BP Pulse Ox
97.7 F 82 12 129/96 95
01/11/25 07:05 01/11/25 09:00 01/11/25 09:00 01/11/25 08:00 01/11/25 09:09
Physical Exam
Constitutional: No Acute Distress and Chronically Ill
Cardiovascular: Regular Rate and S1/S2; Negative Murmur or Rub
Pulmonary: Clear and Symmetric; Negative Wheezes or Rales
Gastrointestinal: Soft, Non Tender, Non Distended and Normal Bowel Sounds
Skin: Warm and Dry; Negative Rash or Jaundice
Objective Data
Lab Data
Lab Results
01/11/25 03:20
01/11/25 03:20
Estimated Creat Clear 77 ml/min 01/11/25 03:20
Lactic Acid Cancelled 01/08/25 20:00
Total Bilirubin 1.0 mg/dl (0.2-1.3) 01/08/25 16:05
AST 25 U/L (17-59) 01/08/25 16:05
ALT 17 U/L (0-50) 01/08/25 16:05
Alkaline Phosphatase 178 U/L (38-126) H 01/08/25 16:05
Most recent labs reviewed.
Micro Results:
01/08/25 18:24 Urine Culture - Preliminary
Urine Escherichia coli
Gram negative bacilli
01/10/25 09:11 Blood Culture - Preliminary
Blood/Venous No Growth in 24 hours- Final report to follow
01/08/25 18:30 Blood Culture - Preliminary
Blood/Venous Staphylococcus aureus
Gram Stain - Preliminary
01/08/25 18:30 Blood Culture - Preliminary
Blood/Venous No Growth in 48 hours- Final report to follow
01/10/25 15:12 Blood Culture - Pending
Blood/Venous
01/08/25 21:55 MRSA Screen - Final
Nose Staph aureus MRSA
[2025-01-11] MEDS: VANCOCIN 200 IV (10:51)
[2025-01-11] MEDS: LACTAID PO (13:58)
--- NOTE | 2025-01-11 15:29 | PTCARENOTE ---
Assumed care of patient at beginning of this shift from previous RN. Ox3; Q2h turn maintained. Trent catheter draining yellow urine; no blood noted in tubing. Scant amount of blood noted at trent insertion site; trent care done and stat lock
changed/moved closer to prevent pulling. IVAB administered as ordered. See worklist for full assessment and vital signs; see MAR for med administration.
--- NOTE | 2025-01-11 15:55 | W.PN.HOSP.TC ---
Today's Communication/Plan
-
Assessment / Plan
Assessment / Plan
General: No Apparent Distress, Comfortable and Conversant
HEENT: NormoCephalic, Moist mucous membranes, Atraumatic
Respiratory: Clear and Non Labored Respirations
Cardiac: S1/S2 and Regular Rhythm; No Rub or Gallop
GI: Soft, Non Tender, Non Distended and Normal Bowel Sounds
Musculoskeletal: No Edema, spastic deformity bilateral lower extremities
: Cohen in place draining clear yellow urine
Neuro: Awake, Alert, AO x 3, bilateral lower extremity spasticity
Psych: Calm and Intact Judgment/Insight
Mr. Alvarado is an 84-year-old male with a medical history of spinal stenosis (bedbound, spastic lower extremity deformity bilaterally), peripheral neuropathy, chronic hypotension, Hodgkin's lymphoma, and anxiety/depression who presented from his
[facility] with hematuria. His Cohen catheter was exchanged and subsequently he developed hematuria with clots. He was sent to the emergency department for evaluation. Three-way Cohen catheter for CBI was unable to be placed. However, urology
was able to place a coud� catheter and irrigated a large amount of clots, after which his Cohen was draining clear yellow urine. He was also noted to have a fever in the ED and CT of the abdomen pelvis showed a large rectal stool burden with likely
developing stercoral colitis. He developed hypotension requiring initiation of vasopressors. He was admitted for further evaluation and management of hematuria, septic shock secondary to UTI, and stercoral colitis.
Hematuria:
-Suspect secondary to traumatic Cohen exchange
-Cohen now draining clear yellow urine
-Hemoglobin stable, will monitor
-Monitor urine output and flush Cohen as needed
-Outpatient urology follow-up
Septic shock:
-Secondary to UTI, however now blood cultures are positive for Staph aureus
-Continue cefepime, added vancomycin
-Has been afebrile since initial fever of 101.7 �F in the ED, leukocytosis resolving
-Follow-up final cultures and narrow antibiotics as able
-Shock resolved, vasopressors have been discontinued, will restart home midodrine for chronic hypotension
Staph aureus bacteremia:
-Blood cultures growing Staph aureus, vancomycin added
-Repeat blood cultures negative x 2 for 24 hours, awaiting final results
-Echocardiogram shows no evidence of valvular vegetations
-Infectious disease team following, recommend at least 2 weeks of IV antibiotics
-Will place PICC once blood cultures are negative x 48 hours
Stercoral colitis:
-Large rectal stool burden noted on CT imaging
-Successful enema with large stool output
-Continue scheduled bowel regimen as patient
-Suspect patient has slow transit due to spinal stenosis affecting his lower extremities, bowel, and bladder
Hodgkin's lymphoma:
-Stable
-Will need outpatient follow-up
Anxiety and depression:
-Continue home scheduled bupropion which pharmacy has confirmed is prescribed as 150 mg every 48 hours
-Patient reports that he is supposed to be taking Zoloft however pharmacy has confirmed this is not been prescribed recently even at his nursing facility
-Valium at night
Peripheral neuropathy:
-Chronic, suspect due to spinal stenosis
-Continue home gabapentin
CODE STATUS: Full code
Anticipated Discharge: 24 - 48 hours
Subjective/Interval History
-
Date of Service: January 11, 2025
Patient was seen and examined at bedside this morning. Feeling well. Discussed need for long-term IV antibiotics for staph bacteremia.
Objective Data
-
Labs:
Laboratory Results
01/11/25
03:20
Sodium 139
Potassium 4.4
Chloride 112 H
Carbon Dioxide 18 L
BUN 20
Creatinine 0.8
Glucose 94
Calcium 8.4
Vital Signs:
Vital Signs
Temp Pulse Resp BP Pulse Ox
97.7 F 79 13 100/60 96
01/11/25 07:05 01/11/25 14:00 01/11/25 14:00 01/11/25 14:00 01/11/25 14:00
I&O
01/10/25 01/11/25 01/12/25
06:59 06:59 06:59
Intake Total 3480 / 3480 4620 / 4620
Output Total 925 / 925 3100 / 3100 900 / 900
Balance 2555 / 2555 1520 / 1520 -900 / -900
Review of Systems
-
History Source: Patient
All other systems: Reviewed and negative
Physical Exam
-
General: No Apparent Distress
[2025-01-11] MEDS: VANCOCIN 150 IV (17:56)
[2025-01-11] MEDS: DULCOLAX RECTAL (19:21)
[2025-01-11] MEDS: VALIUM 5 MG PO (21:26)
[2025-01-11] MEDS: NEURONTIN 300 MG PO (21:26)
[2025-01-12] VITALS (13 sets, daily range): BP systolic 114–157; BP diastolic 61–100; BMI 22.5
[2025-01-12] MEDS: HEPARIN 5000 UNITS SC ×3 (01:08→16:31)
[2025-01-12] MEDS: STERILE WATER FOR INJECTION 10 ML IV ×2 (01:09→09:55)
[2025-01-12] MEDS: MAXIPIME 1000 MG IV ×2 (01:09→09:56)
--- NOTE | 2025-01-12 01:35 | PTCARENOTE ---
Pt received at beginning of shift resting in bed. AAOx3 but asks same questions over and over. Is forgetful. VSS. Afebrile. SR/first degree block on CM. POX 94% on RA. Cohen draining clear yellow urine. Incontinent dark brown soft stool. Calazime to
buttocks. B/L foot drop/contractions to knees/feet/toes. Multiple pillows used for skin protection/comfort. Maintained on Q2hr turns. Rest of assessment as documented. Call phillip remains within reach. Will continue to monitor.
[2025-01-12] MEDS: TYLENOL 650 MG PO ×3 (05:29→20:55)
[2025-01-12] MEDS: VANCOCIN 150 IV (05:30)
[2025-01-12 05:50] LABS: % Basophils 0.6 % (0-2); % Eosinophils 1.1 % (0-6); % Immature Granulocytes 3.6 % (0-0.5); % Lymphocytes 15.3 % (20.5-51.1); % Monocytes 7.2 % (1.7-9.3); % Neutrophils 72.2 % (42.2-75.2); Absolute Basophils 0.1 10^3/uL (0-0.2); Absolute Eosinophils 0.1 10^3/uL (0-0.7); Absolute Immature Granulocytes 0.4 10^3/uL (0-0.05); Absolute Lymphocytes 1.5 10^3/uL (1.2-3.4); Absolute Monocytes 0.7 10^3/uL (0.1-0.6); Absolute Neutrophils 7.3 10^3/uL (1.4-6.5); Hematocrit 27.8 % (39.0-52.0); Hemoglobin 9.2 g/dL (13.0-18.0); Mean Corp Hgb Conc. 33.1 g/dL (33.0-37.0); Mean Corpuscular Hgb 28.3 pg (27.0-31.0); Mean Corpuscular Volume 85.5 fL (80.0-94.0); Nucleated Red Blood Cells % 0 % (-); Platelet Count 180 10^3/uL (130-400); Red Blood Cell Count 3.25 10^6/uL (4.70-6.10); Red Cell Dist. Width 14.1 % (11.5-14.5); White Blood Cell Count 10.1 10^3/uL (4.8-10.8)
[2025-01-12 06:08] LABS: Blood Urea Nitrogen 17 mg/dl (9-20); Calcium 8.7 mg/dl (8.4-10.2); Carbon Dioxide 21 mmol/L (22-30); Chloride 110 mmol/L (98-107); Estimated Creatinine Clearance 77 ml/min; Glucose 103 mg/dl (70-99); Potassium 4.4 mmol/L (3.5-5.1); Sodium 139 mmol/L (135-145); eGFR > 60.00
[2025-01-12 06:40] LABS: Vancomycin Random 16.2 ug/ml
[2025-01-12] MEDS: FLORASTOR 250 MG PO ×2 (08:06→20:56)
[2025-01-12] MEDS: FLOMAX 0.4 MG PO ×2 (08:06→20:55)
[2025-01-12] MEDS: LACTAID PO ×4 (08:06→16:31)
[2025-01-12] MEDS: ProAmatine 5 MG PO ×2 (08:07→20:56)
[2025-01-12] MEDS: PROTONIX 20 MG PO (08:09)
[2025-01-12] MEDS: MIRALAX PO (08:14)
--- NOTE | 2025-01-12 09:33 | PHA.VAN.FU ---
Vancomycin Assessment / Plan
- Assessment
Renal Function: SCR Decreasing
WBC's are: Trending Down
In the past 24 hrs, patient has been: Afebrile
Concomitant Antimicrobials: Cefepime
- Assessment - Therapeutic Drug Monitoring
Random Level: R = 16.2
- Dosing Plan
Continue: Vanc 750mg IV q12H
- Monitoring Plan
Peak Level: 01/12 at 2030
Trough Level: 01/13 at 0530
- Follow Up
Pharmacy will continue to follow.
Vancomycin Follow UP
- -
Patient Age: 84
Patient Sex: Male
Vancomycin Day #: 3
Indication: Bacteremia
Requesting Provider: Dr. Ornelas
Pertinent Antimicrobial Allergies:
NKDA
Height / Weight:
Height 6 ft 1 in
Actual Weight 76.3 kg
Pertinent Past Medical History: Spinal stenosis (bedbound), Hodgkin's lymphoma
- Vital Signs / Lab Results
Temp Pulse Resp BP Pulse Ox
97.9 F 74 10 149/72 95
01/12/25 07:22 01/12/25 08:07 01/12/25 04:00 01/12/25 08:07 01/12/25 06:00
Lab Results - Hematology
01/10/25 01/11/25 01/12/25
04:24 03:20 05:26
WBC 21.3 H 13.8 H 10.1
Lab Results - Chemistry
01/10/25 01/11/25 01/12/25
04:24 03:20 05:26
BUN 30 H 20 17
Creatinine 1.2 0.8 0.8
Estimated Creat Clear 50 77 77
Microbiology Results
01/10/25 09:11 Blood Culture - Preliminary
Blood/Venous No Growth in 48 hours- Final report to follow
01/08/25 18:24 Urine Culture - Preliminary
Urine Escherichia coli
01/08/25 18:30 Blood Culture - Preliminary
Blood/Venous S aureus-Methicillin Sensitive
Gram Stain - Preliminary
01/08/25 18:30 Blood Culture - Preliminary
Blood/Venous No Growth in 72 hours- Final report to follow
01/10/25 15:12 Blood Culture - Preliminary
Blood/Venous No Growth in 24 hours- Final report to follow
01/08/25 21:55 MRSA Screen - Final
Nose Staph aureus MRSA
Therapeutic Drug Monitoring
Random Vancomycin 16.2 ug/ml 01/12/25 05:26
--- NOTE | 2025-01-12 10:43 | W.PN.ID1 ---
Date of Service
Date of Service: January 12, 2025
Today's Communication
Cefazolin 2g IV q8h x 2 weeks through 01/23/[address] midline when 2nd set of bcx neg x 48hr.
Assessment / Plan
Uncomplicated S aureus (MSSA) Bacteremia (1 of 4 bottles)
chronic hypotension on midodrine
BLAYNE resolved
nares colonized with MRSA
- repeat two sets of blood cultures neg to date
- TTE done - no vegetation seen
- DC Vanco/cefepime.
- Start cefazolin 2g IV q8h x 2 weeks through 01/23/25
- Place midline when 2nd set of bcx neg x 48hr.
Chief Complaint
-: Bacteremia (S aurues)
Subjective / Review of Systems
Feeling better.
Vital Signs / Physical Exam
Vital Signs
Vital Signs
Temp Pulse Resp BP Pulse Ox
97.9 F 74 10 149/72 95
01/12/25 07:22 01/12/25 08:07 01/12/25 04:00 01/12/25 08:07 01/12/25 06:00
Physical Exam
Constitutional: No Acute Distress and Comfortable
Pulmonary: Clear
Gastrointestinal: Soft, Non Tender, Non Distended and Normal Bowel Sounds
Genito-Urinary: Cohen and Clear Urine
Extremities: Edema
Neurological: AO x 3; Negative Meningeal Signs
Objective Data
Lab Data
Lab Results
01/12/25 05:26
01/12/25 05:26
Estimated Creat Clear 77 ml/min 01/12/25 05:26
Lactic Acid Cancelled 01/08/25 20:00
Total Bilirubin 1.0 mg/dl (0.2-1.3) 01/08/25 16:05
AST 25 U/L (17-59) 01/08/25 16:05
ALT 17 U/L (0-50) 01/08/25 16:05
Alkaline Phosphatase 178 U/L (38-126) H 01/08/25 16:05
Most recent labs reviewed.
Micro Results:
01/10/25 09:11 Blood Culture - Preliminary
Blood/Venous No Growth in 48 hours- Final report to follow
01/08/25 18:24 Urine Culture - Preliminary
Urine Escherichia coli
01/08/25 18:30 Blood Culture - Preliminary
Blood/Venous S aureus-Methicillin Sensitive
Gram Stain - Preliminary
01/08/25 18:30 Blood Culture - Preliminary
Blood/Venous No Growth in 72 hours- Final report to follow
01/10/25 15:12 Blood Culture - Preliminary
Blood/Venous No Growth in 24 hours- Final report to follow
01/08/25 21:55 MRSA Screen - Final
Nose Staph aureus MRSA
Care Review
Plan reviewed with: Physician (Dr. Ornelas)
[2025-01-12] MEDS: ANCEF 10 IV ×2 (14:14→20:59)
--- NOTE | 2025-01-12 14:36 | W.PN.HOSP.TC ---
Today's Communication/Plan
-
Assessment / Plan
Assessment / Plan
General: No Apparent Distress, Comfortable and Conversant
HEENT: NormoCephalic, Moist mucous membranes, Atraumatic
Respiratory: Clear and Non Labored Respirations
Cardiac: S1/S2 and Regular Rhythm; No Rub or Gallop
GI: Soft, Non Tender, Non Distended and Normal Bowel Sounds
Musculoskeletal: No Edema, spastic deformity bilateral lower extremities
: Cohen in place draining clear yellow urine
Neuro: Awake, Alert, AO x 3, bilateral lower extremity spasticity
Psych: Calm and Intact Judgment/Insight
Mr. Alvarado is an 84-year-old male with a medical history of spinal stenosis (bedbound, spastic lower extremity deformity bilaterally), peripheral neuropathy, chronic hypotension, Hodgkin's lymphoma, and anxiety/depression who presented from his
shelter with hematuria. His Cohen catheter was exchanged and subsequently he developed hematuria with clots. He was sent to the emergency department for evaluation. Three-way Cohen catheter for CBI was unable to be placed. However, urology
was able to place a coud� catheter and irrigated a large amount of clots, after which his Cohen was draining clear yellow urine. He was also noted to have a fever in the ED and CT of the abdomen pelvis showed a large rectal stool burden with likely
developing stercoral colitis. He developed hypotension requiring initiation of vasopressors. He was admitted for further evaluation and management of hematuria, septic shock secondary to UTI, and stercoral colitis.
Hematuria:
-Resolved
-Suspect secondary to traumatic Cohen exchange
-Cohen now draining clear yellow urine
-Hemoglobin stable, will monitor
-Monitor urine output and flush Cohen as needed
-Outpatient urology follow-up
Septic shock:
-Initially thought secondary to UTI, however now blood cultures are positive for MSSA
-Antibiotics switched to cefazolin
-Has been afebrile since initial fever of 101.7 �F in the ED, leukocytosis resolving
-Shock resolved, vasopressors have been discontinued, restarted home midodrine for chronic hypotension
Staph aureus bacteremia:
-Blood cultures growing MSSA, antibiotics switched to cefazolin 2 g IV every 8 hours x 2 weeks
-Once repeat blood cultures are negative x [address] midline to continue cefazolin through
-Echocardiogram shows no evidence of valvular vegetations
-Appreciate guidance from ID
Stercoral colitis:
-Large rectal stool burden noted on CT imaging at time of admission
-Successful enema with large stool output
-Continue scheduled bowel regimen as patient, continues to have regular bowel movements
-Suspect patient has slow transit due to spinal stenosis affecting his lower extremities, bowel, and bladder
Hodgkin's lymphoma:
-Stable
-Will need outpatient follow-up
Anxiety and depression:
-Continue home scheduled bupropion which pharmacy has confirmed is prescribed as 150 mg every 48 hours
-Patient reports that he is supposed to be taking Zoloft however pharmacy has confirmed this is not been prescribed recently even at his nursing facility
-Valium at night
Peripheral neuropathy:
-Chronic, suspect due to spinal stenosis
-Continue home gabapentin
CODE STATUS: Full code
Anticipated Discharge: 24 - 48 hours
Subjective/Interval History
-
Date of Service: January 12, 2025
Patient was seen and examined at bedside this morning. Blood cultures growing MSSA. Repeat cultures negative to date.
Objective Data
-
Labs:
Laboratory Results
01/12/25
05:26
WBC 10.1
Hgb 9.2 L
Hct 27.8 L
Plt Count 180
Sodium 139
Potassium 4.4
Chloride 110 H
Carbon Dioxide 21 L
BUN 17
Creatinine 0.8
Glucose 103 H
Calcium 8.7
Vital Signs:
Vital Signs
Temp Pulse Resp BP Pulse Ox
98.0 F 74 10 149/72 95
01/12/25 12:28 01/12/25 08:07 01/12/25 04:00 01/12/25 08:07 01/12/25 08:42
I&O
01/11/25 01/12/25 01/13/25
06:59 06:59 06:59
Intake Total 4620 / 4620 480 / 480
Output Total 3100 / 3100 1600 / 1600 900 / 900
Balance 1520 / 1520 -1600 / -1600 -420 / -420
Review of Systems
-
History Source: Patient
All other systems: Reviewed and negative
Physical Exam
-
General: No Apparent Distress
[2025-01-12] MEDS: ULTRAM 25 MG PO (17:15)
[2025-01-12] MEDS: NEURONTIN 300 MG PO (20:55)
[2025-01-12] MEDS: VALIUM 5 MG PO (20:56)
[2025-01-12] MEDS: FLUSH (NSS) 1 FLUSH IV (20:59)
[2025-01-13] VITALS (13 sets, daily range): BP systolic 118–151; BP diastolic 60–86; BMI 22.5
[2025-01-13] MEDS: ULTRAM 25 MG PO ×2 (01:32→23:04)
[2025-01-13] MEDS: HEPARIN 5000 UNITS SC ×4 (01:32→23:04)
--- NOTE | 2025-01-13 05:07 | PTCARENOTE ---
Pt resting comfortable overnight. Medicated with Tylenol and Ultram x 1 each for B/L LE discomfort with good relief. VSS. Afebrile. Cohen draining yellow with sediment urine. 650ml total urine output. Rest of assessment unchanged from beginning of
shift. Maintained on Q2hr turns. Call phillip remains within reach. Will continue to monitor.
[2025-01-13] MEDS: FLUSH (NSS) 2 FLUSH IV (05:35)
[2025-01-13] MEDS: ANCEF 10 IV ×3 (05:35→23:04)
[2025-01-13] MEDS: ProAmatine 5 MG PO ×2 (07:31→20:21)
[2025-01-13] MEDS: FLORASTOR 250 MG PO ×2 (07:34→20:22)
[2025-01-13] MEDS: PROTONIX 20 MG PO (07:34)
[2025-01-13] MEDS: FLOMAX 0.4 MG PO ×2 (07:34→20:21)
[2025-01-13] MEDS: WELLBUTRIN XL (24 hour extended release) 150 MG PO (07:34)
[2025-01-13] MEDS: MIRALAX PO (07:35)
[2025-01-13] MEDS: LACTAID 1 CAPSULE PO (07:35)
[2025-01-13] MEDS: TYLENOL 650 MG PO ×2 (08:15→18:19)
--- NOTE | 2025-01-13 11:07 | W.PN.ID1 ---
Addendum entered and electronically signed by Dana Sarah MD 01/13/25 12:01:
Final Ucx resulted ESBL-Ecoli and Ecoli.
ESBL-ecoli sensitive to doxycycline. Start doxycycline 100mg po bid x 7d.
Original Note:
Date of Service
Date of Service: January 13, 2025
Today's Communication
- Place midline
- Continue cefazolin 2g IV q8h x 2 weeks through 01/23/25
Dollw weekly CBC/diff. CMP while on cefazolin.
- OK to dc back to SNF.
Assessment / Plan
Uncomplicated S aureus (MSSA) Bacteremia (1 of 4 bottles)
chronic hypotension on midodrine
BLAYNE resolved
nares colonized with MRSA
- repeat two sets of blood cultures neg to date
- TTE done - no vegetation seen
- Place midline
- Continue cefazolin 2g IV q8h x 2 weeks through 01/23/25
Dollw weekly CBC/diff. CMP while on cefazolin.
- OK to dc back to SNF.
Chief Complaint
-: Bacteremia (S aurues)
Subjective / Review of Systems
Feels well.
Vital Signs / Physical Exam
Vital Signs
Vital Signs
Temp Pulse Resp BP Pulse Ox
98.3 F 79 12 137/73 95
01/13/25 07:53 01/13/25 08:00 01/13/25 09:00 01/13/25 08:00 01/13/25 09:23
Physical Exam
Constitutional: No Acute Distress and Comfortable
Pulmonary: Clear
Gastrointestinal: Soft, Non Tender, Non Distended and Normal Bowel Sounds
Genito-Urinary: Cohen and Clear Urine
Extremities: Edema
Neurological: AO x 3; Negative Meningeal Signs
Objective Data
Lab Data
Lab Results
01/12/25 05:26
01/12/25 05:26
Estimated Creat Clear 77 ml/min 01/12/25 05:26
Lactic Acid Cancelled 01/08/25 20:00
Total Bilirubin 1.0 mg/dl (0.2-1.3) 01/08/25 16:05
AST 25 U/L (17-59) 01/08/25 16:05
ALT 17 U/L (0-50) 01/08/25 16:05
Alkaline Phosphatase 178 U/L (38-126) H 01/08/25 16:05
Most recent labs reviewed.
Micro Results:
01/10/25 09:11 Blood Culture - Preliminary
Blood/Venous No Growth in 72 hours- Final report to follow
01/08/25 18:30 Blood Culture - Preliminary
Blood/Venous No Growth in 4 days- Final report to follow
01/10/25 15:12 Blood Culture - Preliminary
Blood/Venous No Growth in 48 hours- Final report to follow
01/08/25 18:24 Urine Culture - Preliminary
Urine Escherichia coli
01/08/25 18:30 Blood Culture - Preliminary
Blood/Venous S aureus-Methicillin Sensitive
Gram Stain - Preliminary
01/08/25 21:55 MRSA Screen - Final
Nose Staph aureus MRSA
--- NOTE | 2025-01-13 11:58 | CM ---
Addendum entered by Lima Preciado 01/13/25 13:03:
Facility called and reported that they will order the antibiotics and can accept patient tomorrow
Addendum entered by Lima Preciado 01/13/25 12:34:
Patient is stable for discharge and return to [facility] LTC vs SNF bed
Patient will discharge with Midline access for IV antibiotics; updated clinicals sent to [facility] via [facility];
NIKI also attempted to speak with nursing staff at facility; left voice mails for facility and [facility] liaison to call [employer] with bed availability and medication status to accept patient today vs. tomorrow
Original Note:
Per ID, patient needs midline access and IV antibiotic infusions when he returns to [facility]; referral for return to LTC vs. SNF sent via [employer]
--- NOTE | 2025-01-13 12:25 | W.DCSUMMARY ---
Addendum entered and electronically signed by Mark Ornelas DO 01/13/25 13:08:
Long-term care facility not able to accept patient back until tomorrow 01/14/2025 when necessary medications will be available.
Original Note:
Discharge Summary
Discharge Data
Date of Admission: 01/08/25
Date of Discharge: 01/13/25
-
Pending Results: No
Hospital Course
Mr. Alvarado is an 84-year-old male with a medical history of spinal stenosis (bedbound, spastic lower extremity deformity bilaterally), peripheral neuropathy, chronic hypotension, Hodgkin's lymphoma, and anxiety/depression who presented from his
long term with hematuria. His Cohen catheter was exchanged and subsequently he developed hematuria with clots. He was sent to the emergency department for evaluation. Three-way Cohen catheter for CBI was unable to be placed. However, urology
was able to place a coud� catheter and irrigated a large amount of clots, after which his Cohen was draining clear yellow urine. He was also noted to have a fever in the ED and CT of the abdomen pelvis showed a large rectal stool burden with likely
developing stercoral colitis. He developed hypotension requiring initiation of vasopressors. He was admitted for further evaluation and management of hematuria, septic shock secondary to UTI, and stercoral colitis.
He improved with IV fluids and antibiotic coverage with cefepime. He was quickly able to be weaned off of vasopressors and his hematuria resolved. He remained afebrile since initial fever of 101.7 �F in the ED. His initial leukocytosis of 34,000
resolved with antibiotic treatment. He was given an enema with relief of large stool burden. He was continued on scheduled bowel regimen and continued to have regular bowel movements. His blood cultures grew Staph aureus and so vancomycin was
added to his antibiotic regimen. Final blood cultures showed Staph aureus that was not multidrug-resistant and so his antibiotics were switched to Ancef to be continued 2 g IV every 8 hours for 2 weeks through 01/23/2025. Repeat blood cultures were
negative and echocardiogram showed no evidence of valvular vegetations. Just prior to discharge his urine cultures resulted positive for ESBL E. coli, and so doxycycline 100 mg p.o. twice daily was added to his antibiotic regimen and will be
continued through 01/19/2025.
He will be discharged back to [facility] which is his long-term care facility. A midline IV catheter has been placed for continuation of IV antibiotics through 01/23/25. He will need weekly CBC with differential and CMP while on cefazolin. He
should follow-up with infectious disease, urology, and his primary care physician. He was continued on his home bupropion 150 mg every 8 hours for anxiety and depression. He should follow-up with his PCP or psychiatry for ongoing management and
medication adjustments as needed. He has a history of Hodgkin's lymphoma and should follow-up with his oncologist for ongoing management as needed. At time of hospital discharge he was medically stable.
General: No Apparent Distress, Comfortable and Conversant
HEENT: NormoCephalic, Moist mucous membranes, Atraumatic
Respiratory: Clear and Non Labored Respirations
Cardiac: S1/S2 and Regular Rhythm; No Rub or Gallop
GI: Soft, Non Tender, Non Distended and Normal Bowel Sounds
Musculoskeletal: No Edema, spastic deformity bilateral lower extremities
: Cohen in place draining clear yellow urine
Neuro: Awake, Alert, AO x 3, bilateral lower extremity spasticity
Psych: Calm and Intact Judgment/Insight
Discharge Plan
-
Patient Disposition: Halfway/SNF
Discharge Diagnosis/Procedures: Septic shock secondary to ESBL E. coli UTI and MSSA bacteremia, hematuria, stercoral colitis
Diet: As tolerated
Activity: As tolerated
Activity Restrictions/Additional Instructions:
1. Continue Cefazolin 2g IV q8h x 2 weeks through 01/23/25
2. Weekly CBC/diff and CMP while on cefazolin.
3. Doxycycline 100mg po bid through 01/19/25.
Mr. Alvarado is an 84-year-old male with a medical history of spinal stenosis (bedbound, spastic lower extremity deformity bilaterally), peripheral neuropathy, chronic hypotension, Hodgkin's lymphoma, and anxiety/depression who presented from his
long term with hematuria. His Cohen catheter was exchanged and subsequently he developed hematuria with clots. He was sent to the emergency department for evaluation. Three-way Cohen catheter for CBI was unable to be placed. However, urology
was able to place a coud� catheter and irrigated a large amount of clots, after which his Cohen was draining clear yellow urine. He was also noted to have a fever in the ED and CT of the abdomen pelvis showed a large rectal stool burden with likely
developing stercoral colitis. He developed hypotension requiring initiation of vasopressors. He was admitted for further evaluation and management of hematuria, septic shock secondary to UTI, and stercoral colitis.
He improved with IV fluids and antibiotic coverage with cefepime. He was quickly able to be weaned off of vasopressors and his hematuria resolved. He remained afebrile since initial fever of 101.7 �F in the ED. His initial leukocytosis of 34,000
resolved with antibiotic treatment. He was given an enema with relief of large stool burden. He was continued on scheduled bowel regimen and continued to have regular bowel movements. His blood cultures grew Staph aureus and so vancomycin was
added to his antibiotic regimen. Final blood cultures showed Staph aureus that was not multidrug-resistant and so his antibiotics were switched to Ancef to be continued 2 g IV every 8 hours for 2 weeks through 01/23/2025. Repeat blood cultures were
negative and echocardiogram showed no evidence of valvular vegetations. Just prior to discharge his urine cultures resulted positive for ESBL E. coli, and so doxycycline 100 mg p.o. twice daily was added to his antibiotic regimen and will be
continued through 01/19/2025.
He will be discharged back to [facility] which is his long-term care facility. A midline IV catheter has been placed for continuation of IV antibiotics through 01/23/25. He will need weekly CBC with differential and CMP while on cefazolin. He
should follow-up with infectious disease, urology, and his primary care physician. He was continued on his home bupropion 150 mg every 8 hours for anxiety and depression. He should follow-up with his PCP or psychiatry for ongoing management and
medication adjustments as needed. He has a history of Hodgkin's lymphoma and should follow-up with his oncologist for ongoing management as needed. At time of hospital discharge he was medically stable.
Referrals:
Jordan Miner DO [Active] -
José Luis Solis MD [Family Provider] -
Prescriptions:
New
cefazolin 10 gram Recon Soln
2 g IV Q8H 11 Days Qty: 33 0RF
doxycycline hyclate 100 mg Capsule
100 mg PO Q12 7 Days Qty: 14 0RF
Continued
acetaminophen 325 mg Tablet
650 mg PO Q4HPRN PRN (Reason: mild pain/temp>100)
alum-mag hydroxide-simeth 225-200-25 mg/5 mL Suspension
30 ml PO Q8HPRN PRN (Reason: heartburn)
loperamide [Imodium A-D] 2 mg Capsule
2 mg PO Q8HPRN PRN (Reason: diarrhea)
midodrine 5 mg Tablet
5 mg PO BID
Rx Instructions:
Hold for SBP>150
pantoprazole 20 mg Tablet,Delayed Release (Dr/Ec)
20 mg PO DAILY
tamsulosin [Flomax] 0.4 mg Capsule
0.4 mg PO BID
lactase [Lactaid Fast Act] 9,000 unit Tablet
9,000 unit PO AC
bismuth subsalicylate 262 mg/15 mL Suspension
524 mg PO Q6HPRN PRN (Reason: diarrhea/upset stomach)
gabapentin 300 mg Capsule
300 mg PO HS
albuterol sulfate 90 mcg/actuation Hfa Aerosol Inhaler
2 puff INHALATION R Q4HPRN PRN (Reason: sob)
diazepam 5 mg Tablet
5 mg PO HS
bupropion HCl [Wellbutrin XL] 150 mg Tablet Extended Release 24 Hr
150 mg PO Q48H
Saccharomyces boulardii 250 mg Capsule
250 mg PO BID
tramadol 25 mg Tablet
25 mg PO Q8HPRN PRN (Reason: moderate pain)
Discharge Orders:
Discharge Patient (As Directed); Ordered 01/13/25
Ordered By: Mark Ornelas
Discharge Date and Time
Print Language: FAROESE
[2025-01-13] MEDS: LACTAID PO ×2 (12:56→16:04)
[2025-01-13] MEDS: VIBRAMYCIN 100 MG PO ×2 (13:01→20:21)
[2025-01-13] MEDS: NEURONTIN 300 MG PO (20:21)
[2025-01-13] MEDS: VALIUM 5 MG PO (20:22)
[2025-01-13] MEDS: DULCOLAX RECTAL (20:23)
--- NOTE | 2025-01-13 20:27 | PTCARENOTE ---
cannot verify vitals before 1900
--- NOTE | 2025-01-13 22:38 | PTCARENOTE ---
assumed care of patient, pt is AAOx3, able to make needs known. pt is forgetful and anxious at times. b/l foot drop noted. VSS. 96% RA. q2t. pt incontinent of bowel, pt cleaned up and full bath given. trent intact, trent wipes done. able to take
pills without issues. care ongoing,
[2025-01-14] VITALS: BP 109/64
[2025-01-14 02:00] VITALS: BP 118/67
[2025-01-14 02:46] VITALS: BMI 22.1
[2025-01-14] MEDS: TYLENOL 650 MG PO (02:48)
[2025-01-14 04:00] VITALS: BP 94/58
[2025-01-14 06:00] VITALS: BP 135/75
[2025-01-14] MEDS: ANCEF 10 IV (06:05)
--- NOTE | 2025-01-14 07:51 | W.PN.HOSP.TC ---
Today's Communication/Plan
-
Discharge
Assessment / Plan
Assessment / Plan
Gen-AAOx3, NAD
HEENT-NC, AT, anicteric, clear oral mm
Neck-supple
CV-reg, no M, +S1/S2
Lungs-clear B/L
Abd-soft, NT, ND
Ext-no edema, right upper extremity midline catheter with dressing intact
Musculoskeletal-no cyanosis, clubbing
Skin-warm and dry
Neuro-grossly non-focal
Psych-calm, cooperative
Mr. Alvarado is an 84-year-old male with a medical history of spinal stenosis (bedbound, spastic lower extremity deformity bilaterally), peripheral neuropathy, chronic hypotension, Hodgkin's lymphoma, and anxiety/depression who presented from his
group home with hematuria. His Cohen catheter was exchanged and subsequently he developed hematuria with clots. He was sent to the emergency department for evaluation. Three-way Cohen catheter for CBI was unable to be placed. However, urology
was able to place a coud� catheter and irrigated a large amount of clots, after which his Cohen was draining clear yellow urine. He was also noted to have a fever in the ED and CT of the abdomen pelvis showed a large rectal stool burden with likely
developing stercoral colitis. He developed hypotension requiring initiation of vasopressors. He was admitted for further evaluation and management of hematuria, septic shock secondary to UTI, and stercoral colitis.
Hematuria:
-Resolved
-Suspect secondary to traumatic Cohen exchange
-Cohen now draining clear yellow urine
-Hemoglobin stable, will monitor
-Monitor urine output and flush Cohen as needed
-Outpatient urology follow-up
MSSA septic shock:
-Initially thought secondary to UTI, however now blood cultures are positive for MSSA
-Antibiotics switched to cefazolin
-Has been afebrile since initial fever of 101.7 �F in the ED, leukocytosis resolving
-Shock resolved, vasopressors have been discontinued, restarted home midodrine for chronic hypotension
Ask IV nurse to take a look at midline catheter as patient complaining of discomfort. Discussed with nursing.
Stercoral colitis:
-Large rectal stool burden noted on CT imaging at time of admission
-Successful enema with large stool output
-Continue scheduled bowel regimen as patient, continues to have regular bowel movements
-Suspect patient has slow transit due to spinal stenosis affecting his lower extremities, bowel, and bladder
Hodgkin's lymphoma:
-Stable
-Will need outpatient follow-up
Anxiety and depression:
-Continue home scheduled bupropion which pharmacy has confirmed is prescribed as 150 mg every 48 hours
-Patient reports that he is supposed to be taking Zoloft however pharmacy has confirmed this is not been prescribed recently even at his nursing facility
-Valium at night
Peripheral neuropathy:
-Chronic, suspect due to spinal stenosis
-Continue home gabapentin
Full code
Dispo -medically stable for discharge back to group home today.
Anticipated Discharge: Today
Subjective/Interval History
-
Date of Service: January 14, 2025
Patient seen and examined. Complaining of discomfort around midline catheter in the right arm.
Objective Data
-
Vital Signs:
Vital Signs
Temp Pulse Resp BP Pulse Ox
98.4 F 74 10 135/75 94
01/14/25 02:41 01/14/25 06:00 01/14/25 06:00 01/14/25 06:00 01/14/25 06:00
I&O
01/13/25 01/14/25 01/15/25
06:59 06:59 06:59
Intake Total 480 / 480 240 / 240
Output Total 2150 / 2150 2400 / 2400
Balance -1670 / -1670 -2160 / -2160
Review of Systems
-
History Source: Patient
All other systems: Reviewed and negative
[2025-01-14 08:00] VITALS: BP 144/70
--- NOTE | 2025-01-14 08:15 | VATNOTE ---
Called by PCN to assess midline site. Pt complaining of pain in tissues surrounding midline. Upper arm circumference measured per protocol at 28cm, the same as it measured before the procedure yesterday. No swelling noted to R arm or hand. discussed
with pt that it may be a little uncomfortable post insertion but that it should get better as it heals. Dressing changed per protocol. Pt comfortable with midline, discussed with MD. No further orders at this time.
[2025-01-14] MEDS: LACTAID 1 CAPSULE PO (09:00)
[2025-01-14] MEDS: ProAmatine 5 MG PO (09:00)
[2025-01-14] MEDS: FLOMAX 0.4 MG PO (09:01)
[2025-01-14] MEDS: VIBRAMYCIN 100 MG PO (09:01)
[2025-01-14] MEDS: PROTONIX 20 MG PO (09:01)
[2025-01-14] MEDS: HEPARIN 5000 UNITS SC (09:01)
[2025-01-14] MEDS: FLORASTOR 250 MG PO (09:01)
[2025-01-14] MEDS: MIRALAX 17 GRAMS PO (09:02)
[2025-01-14] MEDS: ULTRAM 25 MG PO (09:05)
--- NOTE | 2025-01-14 09:10 | W.PN.ID1 ---
Date of Service
Date of Service: January 14, 2025
Today's Communication
- Continue cefazolin 2g IV q8h x 2 weeks through 01/23/25
- urine culture with ESBL-ecoli sensitive to doxycycline. c/w doxycycline 100mg po bid x 7d, through 01/19/25
- weekly CBC/diff and CMP while on cefazolin.
- stable for dc from ID perspective
Assessment / Plan
Uncomplicated S aureus (MSSA) Bacteremia (1 of 4 bottles)
chronic hypotension on midodrine
BLAYNE resolved
nares colonized with MRSA
- repeat two sets of blood cultures neg to date
- TTE done - no vegetation seen
- midline
- Continue cefazolin 2g IV q8h x 2 weeks through 01/23/25
- urine culture with ESBL-ecoli sensitive to doxycycline. c/w doxycycline 100mg po bid x 7d, through 01/19/25
- weekly CBC/diff and CMP while on cefazolin.
- stable for dc from ID perspective
Chief Complaint
-: Bacteremia (S aurues)
Subjective / Review of Systems
afebrile
bp stable
no events overnight
Vital Signs / Physical Exam
Vital Signs
Vital Signs
Temp Pulse Resp BP Pulse Ox
98.4 F 74 10 135/75 94
01/14/25 02:41 01/14/25 06:00 01/14/25 06:00 01/14/25 06:00 01/14/25 06:00
Physical Exam
Constitutional: No Acute Distress
Cardiovascular: Regular Rate and S1/S2; Negative Murmur or Rub
Pulmonary: Clear and Symmetric; Negative Wheezes or Rales
Gastrointestinal: Soft, Non Tender, Non Distended and Normal Bowel Sounds
Skin: Warm and Dry; Negative Rash or Jaundice
Objective Data
Lab Data
Lab Results
01/12/25 05:26
01/12/25 05:26
Estimated Creat Clear 77 ml/min 01/12/25 05:26
Lactic Acid Cancelled 01/08/25 20:00
Total Bilirubin 1.0 mg/dl (0.2-1.3) 01/08/25 16:05
AST 25 U/L (17-59) 01/08/25 16:05
ALT 17 U/L (0-50) 01/08/25 16:05
Alkaline Phosphatase 178 U/L (38-126) H 01/08/25 16:05
Most recent labs reviewed.
Micro Results:
01/08/25 18:30 Blood Culture - Final
Blood/Venous No Growth - Final Report
01/10/25 15:12 Blood Culture - Preliminary
Blood/Venous No Growth in 72 hours- Final report to follow
01/08/25 18:24 Urine Culture - Final
Urine Escherichia coli - ESBL
Escherichia coli
01/10/25 09:11 Blood Culture - Preliminary
Blood/Venous No Growth in 72 hours- Final report to follow
01/08/25 18:30 Blood Culture - Preliminary
Blood/Venous S aureus-Methicillin Sensitive
Gram Stain - Preliminary
01/08/25 21:55 MRSA Screen - Final
Nose Staph aureus MRSA
--- NOTE | 2025-01-14 09:26 | CM ---
Reviewed the chart notes and spoke with primary contact Dennys. IMM reviewed. CM continues to be available to patient/family and is monitoring medical plan for needs at discharge.
Plan: Discharge back to [facility]
Call report to: [phone]
Fax report to: [phone]
Medical necessity and transport forms on chart.
[2025-01-14 10:00] VITALS: BP 138/77
== END 2025-01-14 12:17 | DRG 698 ==
LOC: IMU 19:35
PROVIDERS: Internal Medicine; Physician Assistant Medical; ADMITTING PHYSICIAN Hospitalist; ATTENDING PHYSICIAN Hospitalist; CONSULT PHYSICIAN Specialist; EMERGENCY PHYSICIAN Emergency Medicine; FAMILY PHYSICIAN Internal Medicine; OTHER PHYSICIAN Student in an Organized Health Care Education/Training Program
DX: T83.511A Infection and inflammatory reaction due to indwelling urethral catheter, initial encounter (principal); A41.01 Sepsis due to Methicillin susceptible Staphylococcus aureus; A41.51 Sepsis due to Escherichia coli [E. coli]; R65.21 Severe sepsis with septic shock; C81.90 Hodgkin lymphoma, unspecified, unspecified site; N17.9 Acute kidney failure, unspecified; N39.0 Urinary tract infection, site not specified; N40.0 Benign prostatic hyperplasia without lower urinary tract symptoms; E73.9 Lactose intolerance, unspecified; E78.5 Hyperlipidemia, unspecified; F32.A Depression, unspecified; F41.9 Anxiety disorder, unspecified; F44.4 Conversion disorder with motor symptom or deficit; G62.9 Polyneuropathy, unspecified; I73.9 Peripheral vascular disease, unspecified; I95.89 Other hypotension; J44.9 Chronic obstructive pulmonary disease, unspecified; K21.9 Gastro-esophageal reflux disease without esophagitis; K52.89 Other specified noninfective gastroenteritis and colitis; M48.00 Spinal stenosis, site unspecified; Y84.6 Urinary catheterization as the cause of abnormal reaction of the patient, or of later complication, without mention of misadventure at the time of the procedure; Z74.01 Bed confinement status; Z79.899 Other long term (current) drug therapy; Z87.442 Personal history of urinary calculi; Z87.891 Personal history of nicotine dependence; R33.8 Other retention of urine; T83.83XA Hemorrhage due to genitourinary prosthetic devices, implants and grafts, initial encounter
CPT/HCPCS: 74176; 80048; 80053; 80202; 81003; 81015; 82962; 83605; 83735; 84443; 85025; 85027; 87040; 87070; 87077; 87086; 87088; 87147; 87150; 87186; 87205; 93306; 96361; 96374; 96375; 99291